=== PATIENT | male | born 1935 | race Caucasian/White ===

== ENCOUNTER 2020-05-05 10:32 | Outpatient (REF) | payer MEDICARE, SELFPAY ==
[2020-05-05 12:54] LABS: Estimated Average Glucose 137 mg/dL; Hemoglobin A1c % 6.4 %
[2020-05-05 12:56] LABS: Basophils Percent Auto 0.5 % (0-2); Eosinophils Absolute Auto 0.2 X10*3/uL (0.0-0.4); MANUAL DIFF FLAG SCAN; Mean Corpuscular Volume 99.4 fL (80-98); Mean Platelet Volume 13.8 fL (9.4-12.4); Red Cell Distribution Width 14.1 % (11.0-16.0); SCAN SMEAR FLAG 1
[2020-05-05 12:59] LABS: Hematocrit 32.1 % (42-52); Hemoglobin 10.6 g/dl (14.0-18.0); Imm Gran Abs Auto 0.01 X10*3/uL (0.00-0.03); Imm Gran Pct Auto 0.2 % (0.0-0.4); Lymphocytes Absolute Auto 1.7 X10*3/uL (1.2-4.9); Lymphocytes Percent Auto 28.1 % (20-40); Mean Corpuscular Hemoglobin 32.8 pg (27.0-33.0); Monocytes Absolute Auto 0.6 X10*3/uL (0.1-1.2); Monocytes Percent Auto 10.3 % (2-11); Neutrophils Absolute Auto 3.4 X10*3/uL (2.0-8.3); Neutrophils Percent Auto 57.9 % (45-73); Red Blood Count 3.23 X10*6/uL (4.60-5.80); White Blood Count 5.9 X10*3/uL (4.8-10.8)
[2020-05-05 13:15] LABS: PLT ABN DIST 1; Platelet Count 84 X10*3/uL (160-400)
[2020-05-05 13:27] LABS: SLIDE REVIEW VERIFIED
[2020-05-05 13:46] LABS: Alanine Aminotransferase 17 U/L (0-40); Albumin Level 3.8 g/dL (3.5-5.0); Alkaline Phosphatase 175 U/L (39-117); Anion Gap 17 (12-20); Aspartate Amino Transferase 28 U/L (5-37); Blood Urea Nitrogen 45 mg/dL (9-16); Calcium 8.6 mg/dL (8.4-10.2); Carbon Dioxide 28 mmol/L (22-29); Chloride 99 mmol/L (96-108); Cholesterol 112 mg/dL; Estimated Glomerular Filt Rate 8; Glucose Random 128 mg/dL (60-115); HDL Cholesterol 39 mg/dL; LDL Cholesterol Calculated 60 mg/dl; Potassium 4.7 mmol/l (3.3-5.1); Sodium 139 mmol/L (135-145); Total Protein 6.6 g/dL (6.5-8.0); Triglycerides 68 mg/dL
== END 2020-05-05 10:33 | disposition home or self-care (01) ==
LOC: HO.LAB 10:32
PROVIDERS: PCP Internal Medicine; Visit Provider Internal Medicine
DX: E11.22 Type 2 diabetes mellitus with diabetic chronic kidney disease (principal); N18.9 Chronic kidney disease, unspecified; I43 Cardiomyopathy in diseases classified elsewhere; I48.91 Unspecified atrial fibrillation; I95.89 Other hypotension; Z00.00 Encounter for general adult medical examination without abnormal findings
CPT/HCPCS: 36415; 80053; 80061; 83036; 85025

== ENCOUNTER → 2020-08-11 13:53 | Outpatient (REF) | payer MEDICARE, SELFPAY ==
--- NOTE | 2020-08-11 14:00 | CA_ITS ---
Transthoracic Echocardiogram Patient (Last, First, Middle): Alexys Candelaria H Gender: Male Date of : 1935 Age: 84 Procedure Date: 08/11/2020 Procedure Type: Transthoracic Echocardiogram Location: OP Height: 170.18 cm Weight: 91.63 kg BSA: 2.03 m2 Heart Rate: bpm BP: 124 / 50 mmHg Band Machine Operator: MARAL Referring MD: Eduardo Green MD Special Loan Officer: Noé Lam MD Symptoms: I48.0 PAF I42.8 OTHER CMP Study Quality: Fair ECG Rhythm: Sinus Conclusions: - 1. Normal LV systolic function with grade 1 diastolic dysfunction 2. Mild aortic regurgitation next 3. Moderate mitral and calcification next 4. Normal RV systolic pressure 5. No pericardial effusion Findings Left Ventricle Normal left ventricular size, thickness, and systolic function. The visually estimated ejection fraction is between 65-70%. Spectral Doppler is indicative of an impaired relaxation filling pattern. E/E prime ratio is <8, consistent with normal filling pressures. Evidence suggests grade I (mild) diastolic dysfunction. Right Ventricle Normal right ventricular cavity size and systolic function. Atria Both atria are normal in size. There is a mobile atrial septum noted. There is no evidence of interatrial shunt. Aortic Valve There is mild calcification of the aortic valve. There is mild thickening of the aortic valve. There is no aortic valve stenosis. There is mild aortic valve regurgitation. Mitral Valve There is mild anterior mitral leaflet thickening. There is moderate mitral annular calcification. There is trace mitral valve regurgitation. There is no mitral valve stenosis. Pulmonic Valve The pulmonic valve was not well visualized. Tricuspid Valve Likely normal tricuspid valve structure and function. There is trace tricuspid valve regurgitation. The right ventricular systolic pressure is normal. The right ventricular systolic pressure is 29 mmHg. Normal right atrial pressure. There is no evidence of pulmonary hypertension. Great Vessels All visible segments of the aorta are normal in size. The pulmonary artery was not well visualized. Venous The inferior vena cava is normal in size and collapses greater than 50% with inspiration. Pericardium/Pleural There is no evidence of pericardial effusion. Prior Study Comparison No significant change compared to prior study dated: 10/22/2019. Measurements M-Mode Liner Measurements Normals - Women/Men AOV Cusps: 1.90 1.5-2.6 cm/m2 2D Linear Measurements IVSd: 1.05 0.6-0.9/0.6-1.0 cm LVIDd: 4.72 3.9-5.3/4.2-5.9 cm LVIDd Index: 2.33 2.4-3.2/2.2-3.1 cm/m2 LVIDs: 2.54 2.0-3.6 cm LVPWd: 1.06 0.7-1.1 cm Ao Root: 3.50 2.1-3.5 cm LA Diam: 3.80 2.7-3.8/3.0-4.0 cm LAIDs Index: 1.87 1.5-2.3 cm/m2 LV Mass: 222.00 67-162/88-224 g LV Mass Index: 109.36 43-95/49-115 g/m2 LVOT Diam: 2.40 3.0+(-)1.3 cm Mitral Valve MV Pk E: 0.50 MV PK A: 0.71 MV Decel Time: 331.00 E/A: 0.70 E'Lateral: 6.64 E'Medial: 5.22 E/E' Med: 9.50 E/E' Lat: 7.50 PHT: 97.00 MVA PHT: 2.27 Decel [place]: 1.49 Aortic Valve AoV Pk Kurtis: 1.54 AoV Pk Grad: 9.00 AI Pk Kurtis: 3.98 AI [place]: 2.55 LVOT LVOT Pk Kurtis: 0.83 LVOT Mn Kurtis: 0.61 LVOT VTI: 0.19 LVOT Pk Grad: 3.00 LVOT Mn Grad: 2.00 LVOT Diam: 2.40 LVOT Area: 4.52 Diastolic Function MV Pk E: 0.50 MV Pk A: 0.71 E/A: 0.70 E'Medial: 5.22 E/E' Med: 9.50 E' Laterial: 6.64 E/E' Lat: 7.50 Tricuspid Valve TR Pk Kurtis: 2.55 TR Pk Grad: 26.00 RA Press: 3.00 RVSP: 29.00 Great Vessels Aorta Ao Root-2D: 3.50 2.0-3.7 cm Ao Asc: 3.00 2.1-3.4 cm Pulmonary Valve PV Pk Kurtis: 0.95 Peak PV Grad: 4.00 Updated in Other Vendor System with Status of Final Noé Lam MD electronically signed on 08/12/2020 12:01:26 PM with status of Final
== END ==
LOC: HO.CARD 13:53
PROVIDERS: PCP Internal Medicine; Visit Provider Internal Medicine
DX: I48.0 Paroxysmal atrial fibrillation (principal); I42.8 Other cardiomyopathies
CPT/HCPCS: 93306

== ENCOUNTER 2020-08-20 10:38 | Outpatient (REF) | payer MEDICARE, SELFPAY ==
[2020-08-20 11:34] LABS: Estimated Average Glucose 160 mg/dL; Hemoglobin A1c % 7.2 %
[2020-08-20 12:23] LABS: Alanine Aminotransferase 20 U/L (0-40); Albumin Level 3.9 g/dL (3.5-5.0); Alkaline Phosphatase 223 U/L (39-117); Anion Gap 17 (12-20); Aspartate Amino Transferase 28 U/L (5-37); Bilirubin Total 1.3 mg/dL (0.0-1.0); Blood Urea Nitrogen 41 mg/dL (9-16); Calcium 9.1 mg/dL (8.4-10.2); Carbon Dioxide 30 mmol/L (22-29); Chloride 99 mmol/L (96-108); Glucose Random 159 mg/dL (60-115); Potassium 4.5 mmol/L (3.3-5.1); Sodium 141 mmol/L (135-145); Total Protein 6.9 g/dL (6.5-8.0)
[2020-08-20 13:31] LABS: Estimated Glomerular Filt Rate 9
== END 2020-08-20 10:39 | disposition home or self-care (01) ==
LOC: HO.LAB 10:38
PROVIDERS: PCP Internal Medicine; Visit Provider Internal Medicine
DX: E11.22 Type 2 diabetes mellitus with diabetic chronic kidney disease (principal); N18.9 Chronic kidney disease, unspecified; E78.2 Mixed hyperlipidemia; I48.91 Unspecified atrial fibrillation; Z99.2 Dependence on renal dialysis
CPT/HCPCS: 36415; 80053; 83036

== ENCOUNTER → 2020-09-01 13:21 | Outpatient (BNVA) | payer MEDICARE, SELFPAY | PROVIDERS: PCP Internal Medicine; Visit Provider Internal Medicine | DX: I48.0 Paroxysmal atrial fibrillation (principal); I42.8 Other cardiomyopathies; I95.0 Idiopathic hypotension; N18.6 End stage renal disease; Z99.2 Dependence on renal dialysis | CPT/HCPCS: 93005; 99212 ==

== ENCOUNTER 2020-12-01 11:42 | Outpatient (REF) | payer MEDICARE, SELFPAY ==
[2020-12-01 13:48] LABS: Estimated Average Glucose 154 mg/dL
[2020-12-01 14:24] LABS: Alanine Aminotransferase 21 U/L (0-40); Albumin Level 3.7 g/dL (3.5-5.0); Alkaline Phosphatase 272 U/L (39-117); Anion Gap 19 (12-20); Aspartate Amino Transferase 29 U/L (5-37); Bilirubin Total 1.2 mg/dL (0.0-1.0); Blood Urea Nitrogen 43 mg/dL (9-16); Calcium 8.9 mg/dL (8.4-10.2); Carbon Dioxide 25 mmol/L (22-29); Chloride 100 mmol/L (96-108); Estimated Glomerular Filt Rate 9; Glucose Random 144 mg/dL (60-115); Potassium 4.2 mmol/L (3.3-5.1); Sodium 140 mmol/L (135-145); Total Protein 6.7 g/dL (6.5-8.0)
== END 2020-12-01 11:43 | disposition home or self-care (01) ==
LOC: HO.LAB 11:42
PROVIDERS: PCP Internal Medicine; Visit Provider Internal Medicine
DX: E11.22 Type 2 diabetes mellitus with diabetic chronic kidney disease (principal); N18.9 Chronic kidney disease, unspecified; E78.2 Mixed hyperlipidemia; I48.91 Unspecified atrial fibrillation; Z99.2 Dependence on renal dialysis
CPT/HCPCS: 36415; 80053; 83036

== ENCOUNTER 2021-03-25 10:27 | Outpatient (REF) | payer MEDICARE, OTHER, SELFPAY ==
[2021-03-25 11:18] LABS: Estimated Average Glucose 166 mg/dL; Hemoglobin A1c % 7.4 %
[2021-03-25 12:15] LABS: Vitamin B12 717 pg/mL (200-900)
[2021-03-25 12:49] LABS: Creatinine Urine 218.11 mg/dL
[2021-03-25 13:19] LABS: Alanine Aminotransferase 29 U/L (0-40); Albumin Level 3.8 g/dL (3.5-5.0); Alkaline Phosphatase 223 U/L (39-117); Anion Gap 16 (12-20); Aspartate Amino Transferase 38 U/L (5-37); Bilirubin Total 1.5 mg/dL (0.0-1.0); Blood Urea Nitrogen 47 mg/dL (9-16); Calcium 9.2 mg/dL (8.4-10.2); Carbon Dioxide 25 mmol/L (22-29); Chloride 102 mmol/L (96-108); Cholesterol 127 mg/dL; Estimated Glomerular Filt Rate 9; Glucose Random 166 mg/dL (60-115); HDL Cholesterol 38 mg/dL; LDL Cholesterol Calculated 69 mg/dl; Potassium 4.2 mmol/L (3.3-5.1); Sodium 139 mmol/L (135-145); Total Protein 6.7 g/dL (6.5-8.0); Triglycerides 103 mg/dL
== END 2021-03-25 10:28 | disposition home or self-care (01) ==
LOC: HO.LAB 10:27
PROVIDERS: PCP Internal Medicine; Visit Provider Internal Medicine
DX: Z00.00 Encounter for general adult medical examination without abnormal findings (principal); E11.40 Type 2 diabetes mellitus with diabetic neuropathy, unspecified; E78.2 Mixed hyperlipidemia; I11.0 Hypertensive heart disease with heart failure; I50.22 Chronic systolic (congestive) heart failure; Z79.01 Long term (current) use of anticoagulants
CPT/HCPCS: 36415; 80053; 80061; 82043; 82607; 83036

== ENCOUNTER → 2021-03-30 12:52 | Outpatient (BNVA) | payer MEDICARE, OTHER, SELFPAY | PROVIDERS: PCP Internal Medicine; Visit Provider Internal Medicine | DX: I48.0 Paroxysmal atrial fibrillation (principal); I42.8 Other cardiomyopathies; I95.0 Idiopathic hypotension; N18.6 End stage renal disease; Z99.2 Dependence on renal dialysis | CPT/HCPCS: 99212 ==

== ENCOUNTER → 2021-09-28 13:26 | Outpatient (BNVA) | payer MEDICARE, OTHER, SELFPAY | PROVIDERS: PCP Internal Medicine; Referring Provider Internal Medicine; Visit Provider Internal Medicine | DX: I48.0 Paroxysmal atrial fibrillation (principal); I42.8 Other cardiomyopathies; I95.0 Idiopathic hypotension; N18.6 End stage renal disease; Z99.2 Dependence on renal dialysis | CPT/HCPCS: 93005; 99212 ==

== ENCOUNTER 2021-10-21 10:27 | Outpatient (REF) | payer MEDICARE, OTHER, SELFPAY ==
[2021-10-21 11:33] LABS: Estimated Average Glucose 157 mg/dL; Hemoglobin A1c % 7.1 %
[2021-10-21 13:09] LABS: Alanine Aminotransferase 30 U/L (0-40); Albumin Level 3.9 g/dL (3.5-5.0); Alkaline Phosphatase 204 U/L (39-117); Anion Gap 20 (12-20); Aspartate Amino Transferase 36 U/L (5-37); Bilirubin Total 1.5 mg/dL (0.0-1.0); Blood Urea Nitrogen 50 mg/dL (9-16); Calcium 9.3 mg/dL (8.4-10.2); Carbon Dioxide 24 mmol/L (22-29); Chloride 100 mmol/L (96-108); Estimated Glomerular Filt Rate 8; Glucose Random 141 mg/dL (60-115); Potassium 4.6 mmol/L (3.3-5.1); Sodium 139 mmol/L (135-145); Total Protein 6.9 g/dL (6.5-8.0)
== END 2021-10-21 10:28 | disposition home or self-care (01) ==
LOC: HO.LAB 10:27
PROVIDERS: PCP Internal Medicine; Visit Provider Internal Medicine
DX: E11.65 Type 2 diabetes mellitus with hyperglycemia (principal); I48.91 Unspecified atrial fibrillation; I10 Essential (primary) hypertension
CPT/HCPCS: 36415; 80053; 83036

== ENCOUNTER 2022-01-20 10:37 | Outpatient (REF) | payer MEDICARE, OTHER, SELFPAY ==
[2022-01-20 12:24] LABS: Estimated Average Glucose 146 mg/dL; Hemoglobin A1c % 6.7 %
[2022-01-20 13:02] LABS: Alanine Aminotransferase 32 U/L (0-40); Albumin Level 3.9 g/dL (3.5-5.0); Alkaline Phosphatase 201 U/L (39-117); Anion Gap 18 (12-20); Aspartate Amino Transferase 42 U/L (5-37); Bilirubin Total 1.3 mg/dL (0.0-1.0); Blood Urea Nitrogen 45 mg/dL (9-16); Calcium 9.4 mg/dL (8.4-10.2); Carbon Dioxide 31 mmol/L (22-29); Chloride 96 mmol/L (96-108); Estimated Glomerular Filt Rate 9; Glucose Random 106 mg/dL (60-115); Potassium 4.6 mmol/L (3.3-5.1); Sodium 140 mmol/L (135-145); Total Protein 6.9 g/dL (6.5-8.0)
== END 2022-01-20 10:38 | disposition home or self-care (01) ==
LOC: HO.LAB 10:37
PROVIDERS: PCP Internal Medicine; Visit Provider Internal Medicine
DX: I12.9 Hypertensive chronic kidney disease with stage 1 through stage 4 chronic kidney disease, or unspecified chronic kidney disease (principal); N18.9 Chronic kidney disease, unspecified; E11.22 Type 2 diabetes mellitus with diabetic chronic kidney disease; Z99.2 Dependence on renal dialysis
CPT/HCPCS: 36415; 80053; 83036

== ENCOUNTER → 2022-03-22 12:59 | Outpatient (BNVA) | payer MEDICARE, OTHER, SELFPAY | PROVIDERS: PCP Internal Medicine; Referring Provider Internal Medicine; Visit Provider Internal Medicine | DX: I42.8 Other cardiomyopathies (principal); I48.0 Paroxysmal atrial fibrillation; I95.0 Idiopathic hypotension; N18.6 End stage renal disease; Z99.2 Dependence on renal dialysis | CPT/HCPCS: 99212 ==

== ENCOUNTER 2022-03-24 10:19 | Outpatient (REF) | payer MEDICARE, OTHER, SELFPAY ==
[2022-03-24 10:36] LABS: MANUAL DIFF FLAG NO
[2022-03-24 11:43] LABS: Basophils Percent Auto 0.5 % (0-2); Eosinophils Absolute Auto 0.4 X10*3/uL (0.0-0.4); Eosinophils Percent Auto 5.2 % (0-4); Hematocrit 31.5 % (42.0-52.0); Hemoglobin 10.4 g/dl (14.0-18.0); Imm Gran Abs Auto 0.04 X10*3/uL (0.00-0.03); Imm Gran Pct Auto 0.5 % (0.0-0.4); Lymphocytes Absolute Auto 1.7 X10*3/uL (1.2-4.9); Mean Corpuscular Hemoglobin 32.1 pg (27.0-33.0); Mean Corpuscular Volume 97.2 fL (80.0-98.0); Mean Platelet Volume 13.6 fL (9.4-12.4); Monocytes Absolute Auto 0.7 X10*3/uL (0.1-1.2); Monocytes Percent Auto 8.5 % (2-11); Neutrophils Absolute Auto 4.9 x10*3/uL (2.0-8.3); Neutrophils Percent Auto 63.3 % (45-73); Red Blood Count 3.24 X10*6/uL (4.60-5.80); Red Cell Distribution Width 15.1 % (11.0-16.0); White Blood Count 7.8 X10*3/uL (4.8-10.8)
[2022-03-24 11:44] LABS: Estimated Average Glucose 143 mg/dL; Hemoglobin A1c % 6.6 %
[2022-03-24 11:45] LABS: Platelet Count 92 X10*3/uL (160-400)
[2022-03-24 12:18] LABS: Thyroid Stimulating Hormone 2.12 uIU/mL (0.32-4.0)
[2022-03-24 12:35] LABS: Vitamin B12 665 pg/mL (200-900)
[2022-03-24 12:44] LABS: Anion Gap 19 (12-20); Carbon Dioxide 28 mmol/L (22-29); Chloride 98 mmol/L (96-108); Glucose Random 98 mg/dL (60-115); Potassium 4.1 mmol/L (3.3-5.1); Sodium 141 mmol/L (135-145)
[2022-03-24 12:45] LABS: Alanine Aminotransferase 24 U/L (0-40); Albumin Level 3.7 g/dL (3.5-5.0); Alkaline Phosphatase 243 U/L (39-117); Aspartate Amino Transferase 39 U/L (5-37); Bilirubin Total 1.2 mg/dL (0.0-1.0); Blood Urea Nitrogen 44 mg/dL (9-16); Calcium 9.2 mg/dL (8.4-10.2); Cholesterol 116 mg/dL; HDL Cholesterol 46 mg/dL; LDL Cholesterol Calculated 58 mg/dl; Total Protein 6.9 g/dL (6.5-8.0); Triglycerides 63 mg/dL
[2022-03-24 13:26] LABS: Estimated Glomerular Filt Rate 9
== END 2022-03-24 10:20 | disposition home or self-care (01) ==
LOC: HO.LAB 10:19
PROVIDERS: PCP Internal Medicine; Visit Provider Internal Medicine
DX: I12.9 Hypertensive chronic kidney disease with stage 1 through stage 4 chronic kidney disease, or unspecified chronic kidney disease (principal); N18.9 Chronic kidney disease, unspecified; E11.22 Type 2 diabetes mellitus with diabetic chronic kidney disease; E78.00 Pure hypercholesterolemia, unspecified; Z99.2 Dependence on renal dialysis
CPT/HCPCS: 36415; 80053; 80061; 82607; 83036; 84443; 85025

== ENCOUNTER 2022-06-28 10:10 | Outpatient (REF) | payer MEDICARE, OTHER, SELFPAY | END 2022-06-28 10:11 | disposition home or self-care (01) | LOC: HO.SH 10:10 | PROVIDERS: Visit Provider Internal Medicine | DX: Z01.118 Encounter for examination of ears and hearing with other abnormal findings (principal); H90.3 Sensorineural hearing loss, bilateral | CPT/HCPCS: 92557; 92567 ==

== ENCOUNTER → 2022-11-10 10:44 | Outpatient (BNVA) | payer MEDICARE, OTHER, SELFPAY | PROVIDERS: PCP Internal Medicine; Referring Provider Internal Medicine; Visit Provider Internal Medicine | DX: I42.8 Other cardiomyopathies (principal); R94.31 Abnormal electrocardiogram [ECG] [EKG]; I48.0 Paroxysmal atrial fibrillation; I95.0 Idiopathic hypotension; K74.60 Unspecified cirrhosis of liver; N18.6 End stage renal disease; Z99.2 Dependence on renal dialysis | CPT/HCPCS: 93005; 99212 ==

== ENCOUNTER 2022-11-21 20:28 | Emergency (ER) | payer OTHER, MEDICARE, SELFPAY ==
--- NOTE | ~2022-11-21 | XR_ITS ---
EXAMINATION: XR CHEST CLINICAL INFORMATION: AMS COMPARISON: None available. TECHNIQUE: Frontal view of the chest was obtained. FINDINGS: The lungs are hypoexpanded but clear. The heart size and pulmonary vascularity is normal. No gross bony abnormality seen. There is a left subclavian stent noted. XR/XR chest 1V IMPRESSION: Unremarkable chest examination.
--- NOTE | ~2022-11-21 | CT_ITS ---
EXAMINATION: CT ABDOMEN AND PELVIS WITHOUT CONTRAST CLINICAL INFORMATION: New onset ascites COMPARISON: None available. TECHNIQUE: Multidetector volumetric imaging was performed from the superior aspect of the liver through the pubic symphysis. Sagittal and coronal reformatted images were obtained on the technologist's workstation. This CT examination was performed using dose optimization techniques as appropriate, variously including the following: *Automated exposure control *Adjustment of mA and/or kV according to patient size (this includes techniques or standardized protocols for targeted exams where dose is matched to indication/reason for exam; i.e. extremities or head) *Use of iterative reconstruction technique DLP: 861 mGy-cm FINDINGS: LUNG BASES: Bibasilar subsegmental atelectasis. Cardiomegaly. Triple vessel coronary calcifications. LIVER, GALLBLADDER, AND BILIARY TREE: Morphologically cirrhotic liver. No focal liver lesions. No biliary dilatation. Cholelithiasis. PANCREAS: Unremarkable. SPLEEN: Unremarkable. ADRENAL GLANDS: Unremarkable. KIDNEYS AND URETERS: Both kidneys are atrophic. There is a 1.3 cm structure emanating from the posterior right upper renal pole measuring 25 HU, indeterminate on the basis of unenhanced CT. No hydronephrosis, hydroureter, or calculi seen. No perinephric stranding. BLADDER: Unremarkable. GASTROINTESTINAL TRACT: Pancolonic diverticulosis, most concentrated in the left colon. No evidence of diverticulitis. Stomach and small bowel unremarkable. PERITONEUM: Large volume ascites. No peritoneal implants. ABDOMINAL WALL: Right lower quadrant hernia containing omental fat. LYMPH NODES: Normal. VASCULAR: Aorta is atherosclerotic but normal caliber. Recanalized periumbilical vein. PELVIC VISCERA: Unremarkable. 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 CT/CT abdomen pelvis wo IV con IMPRESSION: * Morphologically cirrhotic liver with large volume ascites. * Cholelithiasis. * Pancolonic diverticulosis without evidence of diverticulitis. * Indeterminate 1.3 cm structure emanating from the posterior right upper renal pole. Recommend renal ultrasound for further evaluation.
[2022-11-21 20:34] VITALS: BP 110/58; BP 132/51; PULSE 88; PULSE 89; RESP 22; TEMP 36.7; O2SAT 90; O2SAT 92; BMI 31.4
--- NOTE | 2022-11-21 21:00 | PC.NURSE ---
Pt A&Ox3, reports feeling weak and tired during dialysis tx, denies any pain. BP 132/51. Pt able to move all extremities equally, lung sounds clear, crackles to right base. + trill and bruit to left upper arm fistula.
--- NOTE | 2022-11-21 21:23 | ED.GENADULT ---
HPI - General Adult General Chief complaint: General Medical Stated complaint: hypotensive Time Seen by Provider: 11/21/22 21:21 Source: patient and family Mode of arrival: EMS Limitations: no limitations History of Present Illness HPI narrative: Patient 87 years old with history of hepatic cirrhosis and end-stage renal disease on dialysis for last 4 years for last 1 month also noticed increased ascites diagnosed with hepatic cirrhosis been feeling weak and tired today while in dialysis within 2 hours of dialysis blood pressure dropped to 46/29 patient received 600 mL of normal saline and blood pressure improved on arrival patient's blood pressure was 132/51 pulse rate 89 saturating 92% on room air no fever no chills no sore throat cough or shortness of breath no chest pain or palpitation Related Data Home Medications Medication Instructions Recorded Confirmed albuterol sulfate 90 mcg/actuation 2 puff inhalation Q4-6H PRN 09/01/20 11/10/22 aerosol inhaler (ProAir HFA) allopurinol 100 mg tablet 100 mg PO DAILY 09/01/20 11/10/22 furosemide 40 mg tablet 40 mg PO DAILY 09/01/20 11/10/22 ketorolac 0.5 % eye drops 1 drp ophthalmic (eye) BID 09/01/20 11/10/22 melatonin 5 mg capsule mg PO 09/01/20 11/10/22 metoprolol succinate 25 mg 25 mg PO DAILY 09/01/20 11/10/22 tablet,extended release 24 hr pravastatin 80 mg tablet 80 mg PO BEDTIME 09/01/20 11/10/22 prednisone 20 mg tablet 0 mg PO 09/01/20 11/10/22 repaglinide 0.5 mg tablet 0.5 mg PO TID 09/01/20 11/10/22 calcium carbonate 500 mg calcium 500 mg PO TID 03/30/21 11/10/22 (1,250 mg) chewable tablet midodrine 5 mg tablet 5 mg PO TID 09/28/21 11/10/22 Previous Rx's Medication Instructions Recorded apixaban 2.5 mg tablet 2.5 mg PO BID 90 days #180 tabs 02/03/22 lactulose 20 gram oral packet 20 g PO BID #30 ea 11/22/22 Allergies Allergy/AdvReac Type Severity Reaction Status Date / Time No Known Allergies Allergy Verified 11/10/22 10:58 [No Known Allergies*] Review of Systems Review of Systems: Yes all other systems are reviewed and are negative FOR[facility]LY [facility] Past Medical History Medical History Cirrhosis ESRD (end stage renal disease) on dialysis Idiopathic hypotension NICM (nonischemic cardiomyopathy) PAF (paroxysmal atrial fibrillation) Surgical History H/O colonoscopy History of appendectomy Family History Family History Father No problems noted. Mother No problems noted. Social History Social History Alcohol intake: never Patient Tobacco Use Status: Never used Tobacco Smoked in Last 30 Days: No Use of substances other than those prescribed or required for medical reasons: No Advance Directives: No Advance Directives Information Provided: No Physical Exam ED Vital Signs: Vital Signs - 24 hr 11/21/22 20:34 11/22/22 00:27 11/22/22 02:13 Temperature 98.0 F 98.0 F Pulse Rate 89 83 87 Respiratory Rate 22 H 17 20 Blood Pressure 132/51 L 97/48 L 91/49 L Pulse Oximetry 92 97 90 L Oxygen Delivery Method Room Air Room Air Room Air 11/22/22 03:02 Temperature Pulse Rate 89 Respiratory Rate 14 Blood Pressure 106/53 L Pulse Oximetry 92 Oxygen Delivery Method Room Air BMI result Body Mass Index 31.4 Appearance: Alert. Oriented X3. No acute distress. Eyes: PERRLA, pallor+ ENT: Pharynx normal. Oral Mucosa moist Neck: Normal inspection. Neck supple. CVS: Normal heart rate and rhythm. Pulses normal. Respiratory: No respiratory distress. Equal air entry bilateral, no wheezing/rales/rhonchi Abdomen: Distended abdomen with free fluid++ nontender. Bowel sounds are present, no mass palpable, no CVA tenderness Skin: Skin warm and dry. Normal skin color. Normal skin turgor. Extremities: No lower extremity edema. No calf tenderness Neuro: Oriented X 3. No motor deficit. No sensory deficit.No cerebellar signs , cranial nerves II-XII intact Medications Administered Discontinued Medications Generic Name Dose Route Start Last Admin Trade Name Freq PRN Reason Stop Dose Admin Albumin Human 100 mls @ 100 mls/hr 11/22/22 01:45 11/22/22 04:15 Kedbumin 25 % IV 11/22/22 03:44 Infused Q1H GEMMA Infusion Lactulose 20 gm 11/22/22 01:36 11/22/22 01:53 Lactulose 20 Gm/30 Ml Solution PO 11/22/22 01:37 20 gm ONCE ONE Administration Medical Decision Making Medical Decision Making [facility] Narrative: Patient with hepatic cirrhosis with ascites with transient hypotension workup showed hypoalbuminemia likely the cause for hypotension blood pressure improved after 600 cc of IV bolus. Patient had elevated lactic acid level secondary to renal and hepatic failure not from bacteremia/sepsis. Patient will be discharging home advised to be more cautious for dialysis because of hypoalbuminemia Lab Data [facility] Lab Attestation statement: I reviewed the patient's lab results. 11/21/22 22:54 11/22/22 00:38 Labs: Lab Results 11/21/22 11/21/22 11/21/22 Range/Units 22:54 22:54 22:54 WBC 9.9 (4.8-10.8) X10*3/uL RBC 3.96 L D (4.60-5.80) X10*6/uL Hgb 12.6 L D (14.0-18.0) g/dl Hct 37.4 L (42.0-52.0) % MCV 94.4 (80.0-98.0) fL MCH 31.8 (27.0-33.0) pg MCHC 33.7 (31.0-36.0) g/dl RDW 15.5 (11.0-16.0) % Plt Count 206 D (160-400) X10*3/uL MPV 12.1 (9.4-12.4) fL Immature Gran % (Auto) 0.6 H (0.0-0.4) % Neut % (Auto) 79.1 H (45-73) % Lymph % (Auto) 6.9 L (20-40) % Chaves % (Auto) 12.2 H (2-11) % Eos % (Auto) 0.9 (0-4) % Baso % (Auto) 0.3 (0-2) % Lymph # (Auto) 0.7 L (1.2-4.9) X10*3/uL Chaves # (Auto) 1.2 (0.1-1.2) X10*3/uL Eos # (Auto) 0.1 (0.0-0.4) X10*3/uL Baso # (Auto) 0.0 (0.0-0.2) X10*3/uL Abs Immat Gran (auto) 0.06 H (0.00-0.03) X10*3/uL Absolute Neuts (auto) 7.9 (2.0-8.3) x10*3/uL Absolute Nucleated RBC 0.000 (0.0-0.012) X10*3/uL Nucleated RBC % (auto) 0.0 (0.0-0.2) /100WBC PT (10.0-13.1) SEC INR (0.9-1.1) Sodium (135-145) mmol/L Potassium (3.3-5.1) mmol/L Chloride (96-108) mmol/L Carbon Dioxide (22-29) mmol/L Anion Gap (12-20) BUN (9-16) mg/dL Creatinine (0.5-1.4) mg/dL Estim Creat Clear Calc Estimated GFR Random Glucose (60-115) mg/dL Lactic Acid 3.0 H* (0.5-2.0) mmol/L Lactic Acid F/U @ 2Hr (0.5-2.0) mmol/L Calcium (8.4-10.2) mg/dL Total Bilirubin (0.0-1.0) mg/dL AST (5-37) U/L ALT (0-40) U/L Alkaline Phosphatase (39-117) U/L Ammonia (13-55) umol/L Troponin I High Sens 37.5 H (<3.5-35.0) ng/L Total Protein (6.5-8.0) g/dL Albumin (3.5-5.0) g/dL 11/21/22 11/21/22 11/22/22 Range/Units 22:54 22:54 00:38 WBC (4.8-10.8) X10*3/uL RBC (4.60-5.80) X10*6/uL Hgb (14.0-18.0) g/dl Hct (42.0-52.0) % MCV (80.0-98.0) fL MCH (27.0-33.0) pg MCHC (31.0-36.0) g/dl RDW (11.0-16.0) % Plt Count (160-400) X10*3/uL MPV (9.4-12.4) fL Immature Gran % (Auto) (0.0-0.4) % Neut % (Auto) (45-73) % Lymph % (Auto) (20-40) % Chaves % (Auto) (2-11) % Eos % (Auto) (0-4) % Baso % (Auto) (0-2) % Lymph # (Auto) (1.2-4.9) X10*3/uL Chaves # (Auto) (0.1-1.2) X10*3/uL Eos # (Auto) (0.0-0.4) X10*3/uL Baso # (Auto) (0.0-0.2) X10*3/uL Abs Immat Gran (auto) (0.00-0.03) X10*3/uL Absolute Neuts (auto) (2.0-8.3) x10*3/uL Absolute Nucleated RBC (0.0-0.012) X10*3/uL Nucleated RBC % (auto) (0.0-0.2) /100WBC PT 15.4 H (10.0-13.1) SEC INR 1.3 H (0.9-1.1) Sodium 137 (135-145) mmol/L Potassium 4.2 (3.3-5.1) mmol/L Chloride 95 L (96-108) mmol/L Carbon Dioxide 28 (22-29) mmol/L Anion Gap 18 (12-20) BUN 48 H (9-16) mg/dL Creatinine 6.52 H* (0.5-1.4) mg/dL Estim Creat Clear Calc 8.9 Estimated GFR 8 Random Glucose 190 H (60-115) mg/dL Lactic Acid (0.5-2.0) mmol/L Lactic Acid F/U @ 2Hr (0.5-2.0) mmol/L Calcium 8.5 D (8.4-10.2) mg/dL Total Bilirubin 2.2 H (0.0-1.0) mg/dL AST 45 H (5-37) U/L ALT 27 (0-40) U/L Alkaline Phosphatase 340 H (39-117) U/L Ammonia 61 H (13-55) umol/L Troponin I High Sens (<3.5-35.0) ng/L Total Protein 6.0 L (6.5-8.0) g/dL Albumin 2.4 L (3.5-5.0) g/dL 11/22/22 Range/Units 02:32 WBC (4.8-10.8) X10*3/uL RBC (4.60-5.80) X10*6/uL Hgb (14.0-18.0) g/dl Hct (42.0-52.0) % MCV (80.0-98.0) fL MCH (27.0-33.0) pg MCHC (31.0-36.0) g/dl RDW (11.0-16.0) % Plt Count (160-400) X10*3/uL MPV (9.4-12.4) fL Immature Gran % (Auto) (0.0-0.4) % Neut % (Auto) (45-73) % Lymph % (Auto) (20-40) % Chaves % (Auto) (2-11) % Eos % (Auto) (0-4) % Baso % (Auto) (0-2) % Lymph # (Auto) (1.2-4.9) X10*3/uL Chaves # (Auto) (0.1-1.2) X10*3/uL Eos # (Auto) (0.0-0.4) X10*3/uL Baso # (Auto) (0.0-0.2) X10*3/uL Abs Immat Gran (auto) (0.00-0.03) X10*3/uL Absolute Neuts (auto) (2.0-8.3) x10*3/uL Absolute Nucleated RBC (0.0-0.012) X10*3/uL Nucleated RBC % (auto) (0.0-0.2) /100WBC PT (10.0-13.1) SEC INR (0.9-1.1) Sodium (135-145) mmol/L Potassium (3.3-5.1) mmol/L Chloride (96-108) mmol/L Carbon Dioxide (22-29) mmol/L Anion Gap (12-20) BUN (9-16) mg/dL Creatinine (0.5-1.4) mg/dL Estim Creat Clear Calc Estimated GFR Random Glucose (60-115) mg/dL Lactic Acid (0.5-2.0) mmol/L Lactic Acid F/U @ 2Hr 0.9 (0.5-2.0) mmol/L Calcium (8.4-10.2) mg/dL Total Bilirubin (0.0-1.0) mg/dL AST (5-37) U/L ALT (0-40) U/L Alkaline Phosphatase (39-117) U/L Ammonia (13-55) umol/L Troponin I High Sens (<3.5-35.0) ng/L Total Protein (6.5-8.0) g/dL Albumin (3.5-5.0) g/dL Radiology Impression Discussion of test interpretation with radiology: I have reviewed the radiologist's reading. Radiologist Impression: [place] [id number] CT Scan Report Signed Patient: Alexys Candelaria MR#: [id number] : 1935 Acct:[id number] Age/Sex: 87 / M ADM Date: 11/21/22 Loc: .ED Attending Dr: Ordering Physician: Polo Pradhan MD Date of Service: 11/22/22 Procedure(s): CT abdomen pelvis wo IV con Accession Number(s): [id number] cc: Polo Pradhna MD~ EXAMINATION: CT ABDOMEN AND PELVIS WITHOUT CONTRAST? CLINICAL INFORMATION: New onset ascites? COMPARISON: None available. TECHNIQUE: Multidetector volumetric imaging was performed from the superior aspect of the liver through the pubic symphysis. Sagittal and coronal reformatted images were obtained on the technologist's workstation.? This CT examination was performed using dose optimization techniques as appropriate, variously including the following: *Automated exposure control *Adjustment of mA and/or kV according to patient size (this includes techniques or standardized protocols for targeted exams where dose is matched to indication/reason for exam; i.e. extremities or head) *Use of iterative reconstruction technique DLP: 861 mGy-cm FINDINGS: LUNG BASES: Bibasilar subsegmental atelectasis. Cardiomegaly. Triple vessel coronary calcifications.? LIVER, GALLBLADDER, AND BILIARY TREE: Morphologically cirrhotic liver. No focal liver lesions. No biliary dilatation. Cholelithiasis.? PANCREAS: Unremarkable.? SPLEEN: Unremarkable.? ADRENAL GLANDS: Unremarkable.? KIDNEYS AND URETERS: Both kidneys are atrophic. There is a 1.3 cm structure emanating from the posterior right upper renal pole measuring 25 HU, indeterminate on the basis of unenhanced CT. No hydronephrosis, hydroureter, or calculi seen. No perinephric stranding. ? BLADDER: Unremarkable.? GASTROINTESTINAL TRACT: Pancolonic diverticulosis, most concentrated in the left colon. No evidence of diverticulitis. Stomach and small bowel unremarkable. PERITONEUM: Large volume ascites. No peritoneal implants. ABDOMINAL WALL: Right lower quadrant hernia containing omental fat. LYMPH NODES: Normal. VASCULAR: Aorta is atherosclerotic but normal caliber. Recanalized periumbilical vein. PELVIC VISCERA: Unremarkable.? 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 CT/CT abdomen pelvis wo IV con IMPRESSION: *? Morphologically cirrhotic liver with large volume ascites. *? Cholelithiasis. *? Pancolonic diverticulosis without evidence of diverticulitis. *? Indeterminate 1.3 cm structure emanating from the posterior right upper renal pole. Recommend renal ultrasound for further evaluation. Discharge Plan Discharge Clinical Impression: ESRD (end stage renal disease) on dialysis, Hepatic cirrhosis Patient Disposition: Home, Self-Care Instructions: Cirrhosis (ED), End Stage Kidney Disease (ED) Additional Instructions: Follow-up with salesperson furniture and Nephrology Take lactulose twice daily as advised Prescriptions: New lactulose 20 gram packet 20 g PO BID Qty: 30 0RF No Action apixaban 2.5 mg tablet 2.5 mg PO BID 90 Days Qty: 180 3RF furosemide 40 mg tablet 40 mg PO DAILY ketorolac 0.5 % drops 1 drp ophthalmic (eye) BID allopurinol 100 mg tablet 100 mg PO DAILY metoprolol succinate 25 mg tablet extended release 24 hr 25 mg PO DAILY repaglinide 0.5 mg tablet 0.5 mg PO TID pravastatin 80 mg tablet 80 mg PO BEDTIME prednisone 20 mg tablet 0 mg PO albuterol sulfate [ProAir HFA] 90 mcg/actuation HFA aerosol inhaler 2 puff inhalation Q4-6H PRN melatonin 5 mg capsule PO calcium carbonate 500 mg calcium (1,250 mg) tablet,chewable 500 mg PO TID midodrine 5 mg tablet 5 mg PO TID Interventions: ED Discharge Assessment Last Done: 11/22/22 04:52 Discharge Date/Time: 11/22/22 04:52
--- NOTE | 2022-11-21 21:26 | ECG_ITS ---
Test Reason : hypotension Blood Pressure : / mmHG Vent. Rate : 087 BPM Atrial Rate : 087 BPM P-R Int : 162 ms QRS Dur : 078 ms QT Int : 426 ms P-R-T Axes : 025 042 055 degrees QTc Int : 512 ms Sinus rhythm with Premature atrial complexes Low voltage QRS Cannot rule out Anterior infarct , age undetermined Prolonged QT Abnormal ECG When compared with ECG of 17-JUN-2019 11:59, Significant changes have occurred Referred By: Polo Pradhan Electronically Signed By:Abdi Hopkins
[2022-11-21 23:02] LABS: MANUAL DIFF FLAG NO
[2022-11-21 23:03] LABS: Basophils Percent Auto 0.3 % (0-2); Eosinophils Absolute Auto 0.1 X10*3/uL (0.0-0.4); Eosinophils Percent Auto 0.9 % (0-4); Hematocrit 37.4 % (42.0-52.0); Hemoglobin 12.6 g/dl (14.0-18.0); Imm Gran Abs Auto 0.06 X10*3/uL (0.00-0.03); Imm Gran Pct Auto 0.6 % (0.0-0.4); Lymphocytes Absolute Auto 0.7 X10*3/uL (1.2-4.9); Lymphocytes Percent Auto 6.9 % (20-40); Mean Corpuscular HGB Conc 33.7 g/dl (31.0-36.0); Mean Corpuscular Hemoglobin 31.8 pg (27.0-33.0); Mean Corpuscular Volume 94.4 fL (80.0-98.0); Mean Platelet Volume 12.1 fL (9.4-12.4); Monocytes Absolute Auto 1.2 X10*3/uL (0.1-1.2); Monocytes Percent Auto 12.2 % (2-11); Neutrophils Absolute Auto 7.9 x10*3/uL (2.0-8.3); Neutrophils Percent Auto 79.1 % (45-73); Platelet Count 206 X10*3/uL (160-400); Red Blood Count 3.96 X10*6/uL (4.60-5.80); Red Cell Distribution Width 15.5 % (11.0-16.0); White Blood Count 9.9 X10*3/uL (4.8-10.8)
[2022-11-21 23:09] LABS: INTERNATIONAL NORM RATIO 1.3 (0.9-1.1); Prothrombin Time 15.4 SEC (10.0-13.1)
[2022-11-21 23:16] LABS: Ammonia 61 umol/L (13-55)
[2022-11-21 23:29] LABS: Troponin-I High Sensitivity 37.5 ng/L (<3.5-35.0)
[2022-11-22 00:27] VITALS: BP 97/48; PULSE 83; RESP 17; TEMP 36.7; O2SAT 97
[2022-11-22 00:58] LABS: Reflex Lactate? Lactic Acid Added
[2022-11-22 01:27] LABS: Alanine Aminotransferase 27 U/L (0-40); Albumin Level 2.4 g/dL (3.5-5.0); Alkaline Phosphatase 340 U/L (39-117); Anion Gap 18 (12-20); Aspartate Amino Transferase 45 U/L (5-37); Bilirubin Total 2.2 mg/dL (0.0-1.0); Blood Urea Nitrogen 48 mg/dL (9-16); Calcium 8.5 mg/dL (8.4-10.2); Carbon Dioxide 28 mmol/L (22-29); Chloride 95 mmol/L (96-108); Creatinine Clr Calc Pharmacy 8.9; Estimated Glomerular Filt Rate 8; Glucose Random 190 mg/dL (60-115); Potassium 4.2 mmol/L (3.3-5.1); Sodium 137 mmol/L (135-145)
--- NOTE | 2022-11-22 01:48 | PC.NURSE ---
pt reposition for comfort.
[2022-11-22] MEDS: Lactulose 20 GM/30 ML SOLUTION PO (01:53)
[2022-11-22] MEDS: Albumin Human 25 % 100 ML IV ×2 (02:06→03:01)
[2022-11-22 02:13] VITALS: BP 91/49; PULSE 87; RESP 20; O2SAT 90
[2022-11-22 02:51] LABS: ~Lactic Acid-LAB USE ONLY 0.9 mmol/L (0.5-2.0)
[2022-11-22 03:02] VITALS: BP 106/53; PULSE 89; RESP 14; O2SAT 92
== END 2022-11-22 04:52 | disposition home or self-care (01) ==
PROVIDERS: Emergency Provider Internal Medicine
DX: K74.60 Unspecified cirrhosis of liver (principal); N18.6 End stage renal disease; R94.31 Abnormal electrocardiogram [ECG] [EKG]; R53.1 Weakness; Z99.2 Dependence on renal dialysis; Z79.899 Other long term (current) drug therapy
CPT/HCPCS: 36415; 71045; 74176; 80053; 82140; 83605; 84484; 85025; 85610; 87040; 93005; 96365; 96366; 99285; P9047

== ENCOUNTER 2022-12-16 18:57 | Inpatient (IN) | payer OTHER, MEDICARE, SELFPAY ==
[2022-12-16] VITALS (8 sets, daily range): BP systolic 62–124; BP diastolic 27–59; PULSE 92–145; RESP 12–29; TEMP 36.6; O2SAT 91–98; BMI 33.7
--- NOTE | 2022-12-16 | ECG_ITS ---
Test Reason : repeat Blood Pressure : / mmHG Vent. Rate : 093 BPM Atrial Rate : 093 BPM P-R Int : 156 ms QRS Dur : 078 ms QT Int : 400 ms P-R-T Axes : 013 011 059 degrees QTc Int : 497 ms Normal sinus rhythm Low voltage QRS Prolonged QT Abnormal ECG When compared with ECG of 16-DEC-2022 18:59, Sinus rhythm has replaced Atrial fibrillation Referred By: Generic ED Physician Electronically Signed By:Abdi Hopkins
--- NOTE | ~2022-12-16 | XR_ITS ---
EXAMINATION: XR CHEST CLINICAL INFORMATION: Short of breath COMPARISON: 11/21/2022 TECHNIQUE: Frontal view of the chest was obtained. FINDINGS: Cardiac leads overlie the chest. Lung volumes are low. Increased retrocardiac opacity. Small left pleural effusion. No pneumothorax. The cardiomediastinal silhouette is unchanged, with a calcified aorta. XR/XR chest 1V IMPRESSION: Small left pleural effusion. Increased retrocardiac opacity which could represent atelectasis or pneumonia.
--- NOTE | ~2022-12-16 | US_ITS ---
EXAMINATION: Ultrasound-guided paracentesis CLINICAL INFORMATION: Ascites COMPARISON: Previous CT of the abdomen and pelvis November 2022 TECHNIQUE: Procedure and risks and benefits including bleeding, infection and low blood pressure were discussed with the patient and informed consent was obtained. The left lower quadrant was prepped and draped in the usual sterile fashion. The skin and soft tissues were anesthetized with 1% lidocaine plain. Using ultrasound guidance and a 5 [place] one-step system, access to the ascitic fluid was obtained. 5.6 L of clear yellow fluid was removed. Diagnostic specimen was sent. FINDINGS: There is a large amount of ascites. This appears slightly complex with septations. US/US paracentesis abd w/image IMPRESSION: Ultrasound-guided paracentesis.
--- NOTE | ~2022-12-16 | XR_ITS ---
EXAMINATION: XR CHEST CLINICAL INFORMATION: Pneumonia COMPARISON: Previous chest x-ray most recent from 12/16/2022 TECHNIQUE: Frontal view of the chest was obtained. FINDINGS: The lung volumes are low. The cardiac and mediastinal contours are stable. There is a small left pleural effusion. There is atelectasis or small infiltrate at the left lung base probably in the left lower lobe. The right lung is clear. No pneumothorax. No acute bone abnormality. XR/XR chest 1V IMPRESSION: Small left pleural effusion and atelectasis or infiltrate in the left lower lobe.
--- NOTE | 2022-12-16 19:22 | ED.GENADULT ---
HPI - General Adult General Chief complaint: General Medical Stated complaint: HYPOTENSIVE LETHARGIC Time Seen by Provider: 12/16/22 19:13 Source: patient and family (Daughter and ) Mode of arrival: EMS History of Present Illness HPI narrative: 87-year-old male with multiple medical comorbidities to include liver cirrhosis and ESR D on dialysis is brought in by EMS after developing significant low blood pressure and becoming hypotensive 30 minutes into his dialysis procedure. His dialysis is Monday. Patient was alert and oriented on arrival to this emergency room. Patient does have a history of paroxysmal atrial fibrillation and is currently on Eliquis. Related Data Home Medications Medication Instructions Recorded Confirmed albuterol sulfate 90 mcg/actuation 2 puff inhalation Q4-6H PRN 09/01/20 11/10/22 aerosol inhaler (ProAir HFA) allopurinol 100 mg tablet 100 mg PO DAILY 09/01/20 11/10/22 furosemide 40 mg tablet 40 mg PO DAILY 09/01/20 11/10/22 ketorolac 0.5 % eye drops 1 drp ophthalmic (eye) BID 09/01/20 11/10/22 melatonin 5 mg capsule mg PO 09/01/20 11/10/22 metoprolol succinate 25 mg 25 mg PO DAILY 09/01/20 11/10/22 tablet,extended release 24 hr pravastatin 80 mg tablet 80 mg PO BEDTIME 09/01/20 11/10/22 prednisone 20 mg tablet 0 mg PO 09/01/20 11/10/22 repaglinide 0.5 mg tablet 0.5 mg PO TID 09/01/20 11/10/22 calcium carbonate 500 mg calcium 500 mg PO TID 03/30/21 11/10/22 (1,250 mg) chewable tablet Previous Rx's Medication Instructions Recorded apixaban 2.5 mg tablet 2.5 mg PO BID 90 days #180 tabs 02/03/22 lactulose 20 gram oral packet 20 g PO BID #30 ea 11/22/22 midodrine 10 mg tablet 10 mg PO TID #90 tabs 11/22/22 Allergies Allergy/AdvReac Type Severity Reaction Status Date / Time No Known Allergies Allergy Verified 11/10/22 10:58 [No Known Allergies*] Review of Systems Review of Systems: Pertinent positives and negatives as stated in HPI [facility] Past Medical History Source: nursing notes reviewed Medical History Cirrhosis ESRD (end stage renal disease) on dialysis Idiopathic hypotension NICM (nonischemic cardiomyopathy) PAF (paroxysmal atrial fibrillation) Surgical History H/O colonoscopy History of appendectomy Family History Family History Father No problems noted. Mother No problems noted. Social History Social History Alcohol intake: never Patient Tobacco Use Status: Never used Tobacco Smoked in Last 30 Days: No Use of substances other than those prescribed or required for medical reasons: No Advance Directives: No Advance Directives Information Provided: No Physical Exam ED Vital Signs: Vital Signs - 24 hr 12/16/22 18:59 12/16/22 19:10 12/16/22 19:18 Temperature 97.8 F Pulse Rate 145 H 125 H 130 H Respiratory Rate 12 22 H 22 H Blood Pressure 68/27 L 73/40 L 93/45 L Pulse Oximetry Oxygen Delivery Method Non-Rebreather Mask 12/16/22 19:42 12/16/22 20:15 Temperature Pulse Rate 95 99 Respiratory Rate 23 H 29 H Blood Pressure 83/44 L 100/58 L Pulse Oximetry 98 93 Oxygen Delivery Method Room Air Room Air BMI result Body Mass Index 33.7 VITAL SIGNS: Reviewed. GENERAL: Chronically ill, in no acute distress. HEAD: Normocephalic/atraumatic EYES: PERRLA, EOMI EARS: Ext canals without abnormality, TMs non-bulging and non-erythematous NOSE: Nares patent bilateral OROPHARYNX: no oral lesions noted, posterior pharynx clear and non-erythematous without noted tonsillar enlargement/erythema/exudates NECK: Supple, no adenopathy LUNGS: Decreased breath sounds in lower base. SpO2<93> CARDIOVASCULAR: Regular rate and rhythm without noted murmurs, no JVD or lower extremity edema. ABDOMEN: Soft, non-tender, distended with bowel sounds. MUSCULOSKELETAL: No tenderness, deformities, or effusions noted on gross inspection. EXTREMITIES: No cyanosis, clubbing or edema. SKIN: Inspection of the skin reveals no rashes, +jaundice NEUROLOGIC: Alert and oriented x 3. Strength and sensation to light touch were grossly intact x 4. Medications Administered Discontinued Medications Generic Name Dose Route Start Last Admin Trade Name Esperanza PRN Reason Stop Dose Admin Metoprolol Tartrate 2.5 mg 12/16/22 19:18 12/16/22 19:25 Metoprolol Tartrate 5 Mg/5 Ml Vial IVPUSH 12/16/22 19:19 2.5 mg ONCE ONE Administration Medical Decision Making Medical Decision Making [facility] Narrative: 87-year-old male who arrives hypotensive and clearly in atrial fibrillation with RVR but alert and oriented, completed the remaining IV fluids (500 cc), placed pads on the patient as he did qualify for cardioversion, but daughter declines cardioversion at this time stating that patient did not need cardioversion before and has received albumin as well as amiodarone and is a very conflicting story. After receiving the 500 cc of fluids on a pressure bag, his pressure has gradually improved, he is noted to be on medication to increase his blood pressure at baseline and suspect that this is due to his underlying liver cirrhosis. Once patient's blood pressure was in the mid 90 systolic he receives 2.5 mg of Lopressor with resolution of RVR and resumption of normal sinus rhythm. On re-evaluation patient states that he feels better. I a.m. aware that patient's lactic acid is significantly elevated, he also has a leukocytosis as well as liver and renal derangements (these derangements are at baseline secondary to his underlying ESR D as well as liver failure). The lactic acid is strongly felt to be associated with patient's significant hypotension secondary to the atrial fibrillation with RVR, but on chest x-ray there was a noted opacity and so after medications are given for the hyper kalemia likely secondary to incomplete dialysis I will administer 2 g of Rocephin. Patient has no abdominal pain to indicate SBP. The low blood pressure is felt to be secondary low pre load from the atrial fibrillation with RVR. 2031: I discussed this case with inpatient hospitalist who accepts admission and understands that we are completing treatment for the hyperkalemia and giving patient antibiotics. I will not be giving any further bolus of fluids due to patient's propensity for fluid overload, noted left pleural effusion on chest x-ray and incomplete dialysis. Differential Diagnosis Please see the discussion above Consult Healthcare Provider Management of the patient was discussed with: Hospitalist Please see the discussion above Lab Data Please see the discussion above 12/16/22 19:23 12/16/22 19:23 Labs: Lab Results 12/16/22 12/16/22 12/16/22 Range/Units 19:23 19:23 19:23 WBC 16.2 H (4.8-10.8) X10*3/uL RBC 3.37 L (4.60-5.80) X10*6/uL Hgb 10.9 L (14.0-18.0) g/dl Hct 31.5 L (42.0-52.0) % MCV 93.5 (80.0-98.0) fL MCH 32.3 (27.0-33.0) pg MCHC 34.6 (31.0-36.0) g/dl RDW 17.6 H (11.0-16.0) % Plt Count 66 L D (160-400) X10*3/uL MPV TNP Immature Gran % (Auto) 1.2 H (0.0-0.4) % Neut % (Auto) 89.6 H (45-73) % Lymph % (Auto) 2.2 L (20-40) % [place] % (Auto) 6.8 (2-11) % Eos % (Auto) 0.1 (0-4) % Baso % (Auto) 0.1 (0-2) % Lymph # (Auto) 0.4 L (1.2-4.9) X10*3/uL [place] # (Auto) 1.1 (0.1-1.2) X10*3/uL Eos # (Auto) 0.0 (0.0-0.4) X10*3/uL Baso # (Auto) 0.0 (0.0-0.2) X10*3/uL Abs Immat Gran (auto) 0.20 H (0.00-0.03) X10*3/uL Absolute Neuts (auto) 14.5 H (2.0-8.3) x10*3/uL Absolute Nucleated RBC 0.000 (0.0-0.012) X10*3/uL Nucleated RBC % (auto) 0.0 (0.0-0.2) /100WBC Smear Tech's Comments VERIFIED PT (10.0-13.1) SEC INR (0.9-1.1) Whole Blood INR Sodium 137 (135-145) mmol/L Potassium 5.9 H D (3.3-5.1) mmol/L Chloride 97 (96-108) mmol/L Carbon Dioxide 15 L (22-29) mmol/L Anion Gap 31 H (12-20) BUN 51 H (9-16) mg/dL Creatinine 6.86 H* (0.5-1.4) mg/dL Estim Creat Clear Calc 7.6 Estimated GFR 8 Random Glucose 108 (60-115) mg/dL Lactic Acid (0.5-2.0) mmol/L Calcium 9.1 D (8.4-10.2) mg/dL Troponin I High Sens 58.6 H D (<3.5-35.0) ng/L 12/16/22 12/16/22 12/16/22 Range/Units 19:23 19:24 19:53 WBC (4.8-10.8) X10*3/uL RBC (4.60-5.80) X10*6/uL Hgb (14.0-18.0) g/dl Hct (42.0-52.0) % MCV (80.0-98.0) fL MCH (27.0-33.0) pg MCHC (31.0-36.0) g/dl RDW (11.0-16.0) % Plt Count (160-400) X10*3/uL MPV Immature Gran % (Auto) (0.0-0.4) % Neut % (Auto) (45-73) % Lymph % (Auto) (20-40) % [place] % (Auto) (2-11) % Eos % (Auto) (0-4) % Baso % (Auto) (0-2) % Lymph # (Auto) (1.2-4.9) X10*3/uL [place] # (Auto) (0.1-1.2) X10*3/uL Eos # (Auto) (0.0-0.4) X10*3/uL Baso # (Auto) (0.0-0.2) X10*3/uL Abs Immat Gran (auto) (0.00-0.03) X10*3/uL Absolute Neuts (auto) (2.0-8.3) x10*3/uL Absolute Nucleated RBC (0.0-0.012) X10*3/uL Nucleated RBC % (auto) (0.0-0.2) /100WBC Smear Tech's Comments PT 19.8 H (10.0-13.1) SEC INR 1.7 H (0.9-1.1) Whole Blood INR Cancelled Sodium (135-145) mmol/L Potassium (3.3-5.1) mmol/L Chloride (96-108) mmol/L Carbon Dioxide (22-29) mmol/L Anion Gap (12-20) BUN (9-16) mg/dL Creatinine (0.5-1.4) mg/dL Estim Creat Clear Calc Estimated GFR Random Glucose (60-115) mg/dL Lactic Acid 12.0 H* (0.5-2.0) mmol/L Calcium (8.4-10.2) mg/dL Troponin I High Sens (<3.5-35.0) ng/L Independent Interpretation I performed an independent interpretation of an: EKG Interpretation: Atrial fibrillation with RVR, HR-135, QRS/QTC is within normal limits. Normal sinus rhythm, HR-93, no STEMI, ID/[id number] Radiology Impression Radiologist Impression: My interpretation is in agreement with radiology's impression. External Record Review External record reviewed: Outpatient record and Prior outpatient labs Discharge Plan Discharge Clinical Impression: Atrial fibrillation with RVR, Hyperkalemia, Hypotension, Pneumonia, Pleural effusion, left Patient Disposition: Admitted As Inpatient Prescriptions: No Action apixaban 2.5 mg tablet 2.5 mg PO BID 90 Days Qty: 180 3RF midodrine 10 mg tablet 10 mg PO TID Qty: 90 3RF lactulose 20 gram packet 20 g PO BID Qty: 30 0RF furosemide 40 mg tablet 40 mg PO DAILY ketorolac 0.5 % drops 1 drp ophthalmic (eye) BID allopurinol 100 mg tablet 100 mg PO DAILY metoprolol succinate 25 mg tablet extended release 24 hr 25 mg PO DAILY repaglinide 0.5 mg tablet 0.5 mg PO TID pravastatin 80 mg tablet 80 mg PO BEDTIME prednisone 20 mg tablet 0 mg PO albuterol sulfate [ProAir HFA] 90 mcg/actuation HFA aerosol inhaler 2 puff inhalation Q4-6H PRN melatonin 5 mg capsule PO calcium carbonate 500 mg calcium (1,250 mg) tablet,chewable 500 mg PO TID
[2022-12-16] MEDS: Metoprolol Tartrate 5 MG/5 ML VIAL 2.5 MG IVPUSH (19:25)
[2022-12-16 19:35] LABS: Basophils Percent Auto 0.1 % (0-2); Eosinophils Percent Auto 0.1 % (0-4); Hematocrit 31.5 % (42.0-52.0); Hemoglobin 10.9 g/dl (14.0-18.0); Imm Gran Pct Auto 1.2 % (0.0-0.4); Lymphocytes Absolute Auto 0.4 X10*3/uL (1.2-4.9); Lymphocytes Percent Auto 2.2 % (20-40); MANUAL DIFF FLAG SCAN; Mean Corpuscular HGB Conc 34.6 g/dl (31.0-36.0); Mean Corpuscular Hemoglobin 32.3 pg (27.0-33.0); Mean Corpuscular Volume 93.5 fL (80.0-98.0); Monocytes Absolute Auto 1.1 X10*3/uL (0.1-1.2); Monocytes Percent Auto 6.8 % (2-11); Neutrophils Absolute Auto 14.5 x10*3/uL (2.0-8.3); Neutrophils Percent Auto 89.6 % (45-73); PLT CLUMP 1; Red Blood Count 3.37 X10*6/uL (4.60-5.80); Red Cell Distribution Width 17.6 % (11.0-16.0); SCAN SMEAR FLAG 1
[2022-12-16 19:38] LABS: White Blood Count 16.2 X10*3/uL (4.8-10.8)
[2022-12-16 19:40] LABS: INTERNATIONAL NORM RATIO 1.7 (0.9-1.1); Prothrombin Time 19.8 SEC (10.0-13.1)
--- NOTE | 2022-12-16 19:51 | MHC.EDTECH ---
This Tech assumed care of this Pt upon arrival. Pt placed on soldering machine feeder EKG done and handed to provider. Pt placed on ZOll monitor per Dr Request. blood work done and sent to the lab for processing. !!!NO BLOOD WORK OR VITALS ON LEFT SIDE!!! SIGN HUNG ON MONITOR.
[2022-12-16 19:53] LABS: Platelet Count 66 X10*3/uL (160-400)
[2022-12-16 20:07] LABS: Troponin-I High Sensitivity 58.6 ng/L (<3.5-35.0)
[2022-12-16 20:09] LABS: SLIDE REVIEW VERIFIED
[2022-12-16 20:12] LABS: Anion Gap 31 (12-20); Blood Urea Nitrogen 51 mg/dL (9-16); Calcium 9.1 mg/dL (8.4-10.2); Carbon Dioxide 15 mmol/L (22-29); Chloride 97 mmol/L (96-108); Creatinine Clr Calc Pharmacy 7.6; Estimated Glomerular Filt Rate 8; Glucose Random 108 mg/dL (60-115); Potassium 5.9 mmol/L (3.3-5.1); Sodium 137 mmol/L (135-145)
--- NOTE | 2022-12-16 20:16 | PC.NURSE ---
pt reassessed , b/p improved, hr 97-99 [id number] on room air, family present
[2022-12-16] MEDS: Magnesium Sulfate/D5W 1 GM/100 ML PIGGYBACK IV (20:47)
[2022-12-16] MEDS: Dextrose 10 % 250 ML 750 ML IV (20:59)
[2022-12-16] MEDS: Insulin Regular, Human 100 UNIT/ML 3 ML VIAL IVPUSH (20:59)
[2022-12-16 21:05] LABS: Lactic Acid 11.8 mmol/L (0.5-2.0)
[2022-12-16 21:07] LABS: Alanine Aminotransferase 28 U/L (0-40); Albumin Level 2.3 g/dL (3.5-5.0); Alkaline Phosphatase 351 U/L (39-117); Aspartate Amino Transferase 71 U/L (5-37); Bilirubin Direct 1.4 mg/dL (0.0-0.5); Bilirubin Total 3.2 mg/dL (0.0-1.0); Total Protein 5.8 g/dL (6.5-8.0)
--- NOTE | 2022-12-16 21:24 | PHA.MEDREC ---
Pharmacy Consult ? Medication Reconciliation Pharmacy has completed the medication reconciliation. Patient's family at bedside had an updated list of patient's meds with them.
[2022-12-16] MEDS: Calcium Gluconate/NaCl,Iso-Osm 2 GM/100 ML PLAST..BAG IV (21:38)
[2022-12-16] MEDS: Midodrine HCl 10 MG TABLET PO (21:56)
[2022-12-16 21:57] LABS: Reflex Lactate? Lactic Acid Added
[2022-12-16] MEDS: cefTRIAXone sodium 1 GM in 0.9 % Sodium Chloride 50 ML IV (22:09)
--- NOTE | 2022-12-16 22:14 | PM.IMHP ---
History of Present Illness Date of Service: 12/16/22 Chief Complaint: Hypotension This is a 87-year-old male with pertinent history of ESRD on hemodialysis, paroxysmal atrial fibrillation on anticoagulation, unspecified liver cirrhosis, QT prolongation on beta-rosendo, 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 Patient is a poor historian and most of the history was taken by daughters at bedside. Patient was found to be hypotensive even before his dialysis session today. Dialysis was initiated and patient's blood pressure further dropped and he was sent to the ER for further evaluation. Patient endorses chills, palpitations and productive cough. The daughter states that patient has been coughing a lot with liquids over the last few days. No fever, chest discomfort, abdominal pain, changes in bowel habits. Does have abdominal distension in the emergency department, patient was found to be hypotensive and he was found to be in AFib with RVR. Leukocytosis was present and imaging was concerning for pneumonia. Review of Systems Constitutional: Constitutional: Reports chills Cardiovascular: Cardiovascular: Reports palpitations Respiratory: Respiratory: Reports cough Gastrointestinal: Gastrointestinal: Reports bloating Genitourinary: Genitourinary: Reports no additional male genitourinary complaints Endocrine: Endocrine: Reports palpitations [facility] Medical History Cirrhosis ESRD (end stage renal disease) on dialysis Idiopathic hypotension NICM (nonischemic cardiomyopathy) PAF (paroxysmal atrial fibrillation) Family History Father No problems noted. Mother No problems noted. Surgical History H/O colonoscopy History of appendectomy Social History Alcohol intake: never Patient Tobacco Use Status: Never used Tobacco Smoked in Last 30 Days: No Use of substances other than those prescribed or required for medical reasons: No Advance Directives: No Advance Directives Information Provided: No Meds Allergies Allergy/AdvReac Type Severity Reaction Status Date / Time No Known Allergies Allergy Verified 11/10/22 10:58 [No Known Allergies*] Active Medications: Current Medications Acetaminophen (Acetaminophen 325 Mg Tablet) 650 mg PO Q6H PRN PRN Reason: Pain, Mild (Pain Scale 1-3) Acetaminophen (Acetaminophen Supp 650 Mg Supp.Rect) 650 mg MA Q6H PRN PRN Reason: Pain, Mild (Pain Scale 1-3) Dextrose (D10) 250 mls @ 750 mls/hr IV Q15M PRN PRN Reason: per Hypoglycemia Standing Ord. Last Infusion: 12/16/22 21:19 Dose: Infused Ampicillin Sodium/Sulbactam (Sodium 3 gm/ Sodium Chloride) 100 mls @ 200 mls/hr IV Q24H [facility] Melatonin (Melatonin 3 Mg Tablet) 6 mg PO BEDTIME PRN PRN Reason: Insomnia Ondansetron HCl (Ondansetron Hcl 4 Mg/2 Ml Vial) 4 mg IVPUSH Q8H PRN PRN Reason: Nausea and Vomiting Pharmacy Consult (Consult Rx Perform Med Rec) 1 each MISCELLANE ONCE PRN PRN Reason: Consult order Sodium Chloride (0.9 % Sodium Chloride Flush 3 Ml Syringe) [facility] Home Medications Medication Instructions Recorded Confirmed Last Taken Type allopurinol 100 mg tablet 100 mg PO SUTUTH@0900 09/01/20 12/16/22 12/15/22 History metoprolol succinate 25 mg 12.5 mg PO BEDTIME 09/01/20 12/16/22 12/15/22 History tablet,extended release 24 hr calcium acetate 667 mg tablet 667 mg PO DAILY 12/16/22 12/16/22 12/16/22 09:00 History ferrous sulfate 324 mg (65 mg 324 mg PO DAILY 12/16/22 12/16/22 12/16/22 09:00 History iron) tablet,delayed release glipizide 5 mg tablet, extended 5 mg PO DAILY 12/16/22 12/16/22 12/16/22 09:00 History release 24 hr lactulose 10 gram/15 mL oral 15 ml PO BID 12/16/22 12/16/22 12/16/22 09:00 History solution midodrine 10 mg tablet 15 mg PO TID 12/16/22 12/16/22 12/16/22 13:30 History auisxywz-aqi-hjhig acid 300 1 tab PO DAILY 12/16/22 12/16/22 12/16/22 09:00 History mcg-lycopene 600 mcg-lutein 300 mcg tablet (Centrum Silver Men) omeprazole 20 mg capsule,delayed 20 mg PO DAILY@0630 12/16/22 12/16/22 12/16/22 06:30 History release rifaximin 550 mg tablet 550 mg PO BID 12/16/22 12/16/22 12/16/22 09:00 History sevelamer carbonate 800 mg tablet 800 mg PO BID 12/16/22 12/16/22 12/16/22 09:00 History Physical Exam Vital Signs and Narrative: Vital Signs: Last Vital Signs Temp 97.8 F 12/16/22 18:59 Pulse 92 12/16/22 21:25 Resp 18 12/16/22 21:25 BP 91/44 L 12/16/22 21:25 Pulse Ox 95 12/16/22 21:25 O2 Del Method Room Air 12/16/22 21:25 BMI result Body Mass Index 33.7 Elderly male lying in bed in no distress Neck supple, no JVD Regular rate and rhythm, S1-S2 heard Regular breath sounds bilaterally, no wheezing or crackles appreciated Abdomen distended nontender, no guarding, no rigidity Patient is awake, alert and oriented to self, place, and person ; no focal motor deficit Psych: Normal mood B/l pedal edema Results Labs 12/16/22 19:23 12/16/22 19:23 Labs: Laboratory Results - last 24 hr 12/16/22 12/16/22 12/16/22 19:23 19:23 19:23 MCV 93.5 MCH 32.3 MCHC 34.6 RDW 17.6 H Plt Count 66 L D MPV TNP Immature Gran % (Auto) 1.2 H Neut % (Auto) 89.6 H Lymph % (Auto) 2.2 L [place] % (Auto) 6.8 Eos % (Auto) 0.1 Baso % (Auto) 0.1 Lymph # (Auto) 0.4 L [place] # (Auto) 1.1 Eos # (Auto) 0.0 Baso # (Auto) 0.0 Abs Immat Gran (auto) 0.20 H Absolute Neuts (auto) 14.5 H Absolute Nucleated RBC 0.000 Nucleated RBC % (auto) 0.0 Smear Tech's Comments VERIFIED PT INR Whole Blood INR Anion Gap 31 H Estim Creat Clear Calc 7.6 Estimated GFR 8 Random Glucose 108 Lactic Acid Calcium 9.1 D Total Bilirubin 3.2 H Direct Bilirubin 1.4 H AST 71 H ALT 28 Alkaline Phosphatase 351 H Troponin I High Sens 58.6 H D Total Protein 5.8 L Albumin 2.3 L 12/16/22 12/16/22 12/16/22 19:23 19:24 19:53 MCV MCH MCHC RDW Plt Count MPV Immature Gran % (Auto) Neut % (Auto) Lymph % (Auto) [place] % (Auto) Eos % (Auto) Baso % (Auto) Lymph # (Auto) [place] # (Auto) Eos # (Auto) Baso # (Auto) Abs Immat Gran (auto) Absolute Neuts (auto) Absolute Nucleated RBC Nucleated RBC % (auto) Smear Tech's Comments PT 19.8 H INR 1.7 H Whole Blood INR Cancelled Anion Gap Estim Creat Clear Calc Estimated GFR Random Glucose Lactic Acid 12.0 H* Calcium Total Bilirubin Direct Bilirubin AST ALT Alkaline Phosphatase Troponin I High Sens Total Protein Albumin 12/16/22 20:36 MCV MCH MCHC RDW Plt Count MPV Immature Gran % (Auto) Neut % (Auto) Lymph % (Auto) [place] % (Auto) Eos % (Auto) Baso % (Auto) Lymph # (Auto) [place] # (Auto) Eos # (Auto) Baso # (Auto) Abs Immat Gran (auto) Absolute Neuts (auto) Absolute Nucleated RBC Nucleated RBC % (auto) Smear Tech's Comments PT INR Whole Blood INR Anion Gap Estim Creat Clear Calc Estimated GFR Random Glucose Lactic Acid 11.8 H* Calcium Total Bilirubin Direct Bilirubin AST ALT Alkaline Phosphatase Troponin I High Sens Total Protein Albumin Imaging Radiologist's Impressions: Impressions Chest X-Ray 12/16/22 20:00 IMPRESSION: Small left pleural effusion. Increased retrocardiac opacity which could represent atelectasis or pneumonia. 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 #. Sepsis due to pneumonia, suspect aspiration. Will admit patient and initiate empiric IV Unasyn (renally dosed). Blood culture and lactic acid obtained. Will keep NPO and consult speech. Patient resuscitated with IV crystalloids. Blood pressure improved with IV crystalloids #. acute lactic acidosis due to sepsis and liver disease #. Paroxysmal afib with rvr: likely In the setting of above. Converted to normal sinus rhythm with IV metoprolol push in the ER. Continue anticoagulation. Hold metoprolol in the setting of hypotension, resume as appropriate #. decompensated cirrhosis with ascites. Obtain therapeutic paracentesis. Continue lactulose and rifaximin #. hyperkalemia. as pt did not complete dialysis today. given temporizing measures. Ordered lokelma #. ESRD on dialysis: Consulted nephrology. Continue sevelamer #. ptn-[id number]-[id number] diabetes mellitus. Hold glipizide. Initiating Accu-Cheks with sliding scale insulin every 6 hours #. QT prolongation. Holding metoprolol as above #. thrombocytopenia in the setting of cirrhosis DVT prophylaxis: Arie Full code . Discussed with daughter at bedside NPO Admit as inpatient and will require two night minimum hospital stay for IV antibiotics Time Spent With Patient Time: Total time managing care of this patient today ____ minutes. Quality Stroke Does the patient have a stroke diagnosis?: No VTE Prior VTE?: No VTE Risk Level:: Medical - moderate - high VTE Device Contraindication: Treatment Not Indicated VTE Drug Contraindication: N/A - Med Ordered
[2022-12-16] MEDS: Ampicillin Sodium/Sulbactam Na 3 GM in 0.9 % Sodium Chloride 100 ML IV (22:30)
[2022-12-16 22:31] LABS: ~Lactic Acid-LAB USE ONLY 9.3 mmol/L (0.5-2.0)
[2022-12-16 22:40] LABS: Reflex Lactate? Lactic Acid Added
--- NOTE | 2022-12-16 22:46 | PM.SEPSBOL4 ---
Sepsis Bolus Exclusion Sepsis Bolus Exclusion Date of Occurrence: 12/16/22 This patient met severe sepsis criteria due to the following condition(s):: Hypotension and Lactate>=4mmol/L In my clinical judgement the administration of 30 ml/kg of crystalloid would be detrimental to this patient due to the patient's following conditions:: Stage III or IV Chronic Kidney Disease (GFR<30) and Concern for fluid overload Replace the 30 mls/kg with (*zero amount not acceptable): *Note: One of the ruiz must be documented Crystalloids amount given in mls: (rate must be at least 150cc/hr): 500 At a rate of (must be > 125 cchr):: 500
[2022-12-16] MEDS: Sodium Zirconium Cyclosilicate 10 GM POWD.PACK PO (22:56)
[2022-12-16] MEDS: Apixaban 2.5 MG TABLET PO (22:56)
[2022-12-16 22:58] LABS: Glucose, Whole Blood 213 mg/dL (60-115)
[2022-12-17] VITALS (7 sets, daily range): BP systolic 95–136; BP diastolic 50–60; PULSE 85–97; RESP 16–20; TEMP 36.1–37.3; O2SAT 92–94; BMI 29.8
[2022-12-17 00:12] LABS: Reflex Lactate? 2 Y
[2022-12-17 05:09] LABS: Glucose, Whole Blood 129 mg/dL (60-115)
[2022-12-17 06:02] LABS: Basophils Percent Auto 0.2 % (0-2); SCAN SMEAR FLAG 1
[2022-12-17 06:03] LABS: Eosinophils Absolute Auto 0.1 X10*3/uL (0.0-0.4); Eosinophils Percent Auto 0.4 % (0-4); Hemoglobin 9.7 g/dl (14.0-18.0); Imm Gran Abs Auto 0.13 X10*3/uL (0.00-0.03); Lymphocytes Absolute Auto 0.5 X10*3/uL (1.2-4.9); Lymphocytes Percent Auto 3.7 % (20-40); MANUAL DIFF FLAG SCAN; Mean Corpuscular HGB Conc 34.6 g/dl (31.0-36.0); Mean Corpuscular Hemoglobin 31.4 pg (27.0-33.0); Mean Corpuscular Volume 90.6 fL (80.0-98.0); Monocytes Absolute Auto 0.9 X10*3/uL (0.1-1.2); Neutrophils Absolute Auto 11.9 x10*3/uL (2.0-8.3); Neutrophils Percent Auto 87.7 % (45-73); PLT CLUMP 1; Red Blood Count 3.09 X10*6/uL (4.60-5.80)
[2022-12-17 06:11] LABS: PLT ABN DIST 1; Platelet Count 50 X10*3/uL (160-400); White Blood Count 13.5 X10*3/uL (4.8-10.8)
[2022-12-17 06:31] LABS: Anion Gap 19 (12-20); Blood Urea Nitrogen 54 mg/dL (9-16); Carbon Dioxide 23 mmol/L (22-29); Chloride 97 mmol/L (96-108); Creatinine Clr Calc Pharmacy 7.4; Estimated Glomerular Filt Rate 8; Glucose Random 130 mg/dL (60-115); Potassium 5.2 mmol/L (3.3-5.1); Sodium 134 mmol/L (135-145)
[2022-12-17 06:32] LABS: Lactic Acid 3.7 mmol/L (0.5-2.0)
[2022-12-17 06:49] LABS: SLIDE REVIEW VERIFIED
[2022-12-17 07:54] LABS: Reflex Lactate? Lactic Acid Added
[2022-12-17] MEDS: Lactulose 20 GM/30 ML SOLUTION 10 GM PO ×2 (08:44→22:15)
[2022-12-17] MEDS: Apixaban 2.5 MG TABLET PO ×2 (08:45→22:14)
[2022-12-17] MEDS: Ferrous Sulfate 324 MG TABLET.DR PO (08:45)
[2022-12-17] MEDS: Multivitamin TABLET 1 TAB PO (08:45)
[2022-12-17] MEDS: Omeprazole 20 MG CAPSULE.DR PO (08:45)
[2022-12-17] MEDS: Sevelamer Carbonate Tablet 800 MG TABLET PO ×2 (08:45→22:14)
[2022-12-17] MEDS: Midodrine HCl 5 MG TABLET 15 MG PO ×3 (08:45→22:14)
[2022-12-17] MEDS: 0.9 % Sodium Chloride Flush 3 ML SYRINGE IVFLUSH ×3 (08:47→22:23)
[2022-12-17] MEDS: Calcium Acetate 667 MG CAPSULE PO (08:47)
[2022-12-17 08:50] LABS: ~Lactic Acid-LAB USE ONLY 3.4 mmol/L (0.5-2.0)
[2022-12-17 09:03] LABS: Glucose, Whole Blood 102 mg/dL (60-115)
[2022-12-17] MEDS: rifAXIMin 550 MG TABLET PO ×2 (09:30→22:14)
[2022-12-17 10:05] LABS: Reflex Lactate? 2 Y
--- NOTE | 2022-12-17 11:08 | P.CONNP_ITS ---
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 Patient is a poor historian and most of the history was taken by daughters at bedside.? Patient was found to be hypotensive even before his dialysis session today.? Dialysis was initiated and patient's blood pressure further dropped and he was sent to the ER for further evaluation.? Patient endorses chills, palpitations and productive cough.? The daughter states that patient has been coughing a lot with liquids over the last few days.? No fever, chest discomfort, abdominal pain, changes in bowel habits.? Does have abdominal distension Usually gets dialysis at [facility] on Fridays 3rd shift Review of Systems Review of Systems No headache. No nausea vomiting. No abdominal pain. No shortness of breath. No cough. No dysuria urgency or hematuria. No edema. No rash. [facility], [facility] Past Medical History Medical History Cirrhosis ESRD (end stage renal disease) on dialysis Idiopathic hypotension NICM (nonischemic cardiomyopathy) PAF (paroxysmal atrial fibrillation) Family History Family History Father No problems noted. Mother No problems noted. Surgical History Surgical History H/O colonoscopy History of appendectomy Social History Social History Household Members: Family Housing: House Do you presently have visiting nurse or other home services: No Alcohol intake: never Patient Tobacco Use Status: Never used Tobacco Meds Allergies Allergy/AdvReac Type Severity Reaction Status Date / Time No Known Allergies Allergy Verified 11/10/22 10:58 [No Known Allergies*] Active Medications: Current Medications Acetaminophen (Acetaminophen 325 Mg Tablet) 650 mg PO Q6H PRN PRN Reason: Pain, Mild (Pain Scale 1-3) Acetaminophen (Acetaminophen Supp 650 Mg Supp.Rect) 650 mg [place] Q6H PRN PRN Reason: Pain, Mild (Pain Scale 1-3) Allopurinol (Allopurinol 100 Mg Tablet) 100 mg PO SUTUTH@0900 [facility] Apixaban (Apixaban 2.5 Mg Tablet) 2.5 mg PO BID [facility] Last Admin: 12/17/22 08:45 Dose: 2.5 mg Calcium Acetate (Calcium Acetate 667 Mg Capsule) 667 mg PO DAILY [facility] Last Admin: 12/17/22 08:47 Dose: 667 mg Ferrous Sulfate (Ferrous Sulfate 324 Mg Tablet.) 324 mg PO DAILY [facility] Last Admin: 12/17/22 08:45 Dose: 324 mg Glucose (Glucose Gel 15 Gm Gel..Gram.) 15 gm PO Q15M PRN; Protocol PRN Reason: per Hypoglycemia Standing Ord. Dextrose (D10) 250 mls @ 750 mls/hr IV Q15M PRN PRN Reason: per Hypoglycemia Standing Ord. Last Infusion: 12/16/22 21:19 Dose: Infused Ampicillin Sodium/Sulbactam (Sodium 3 gm/ Sodium Chloride) 100 mls @ 200 mls/hr IV Q24H [facility] Last Infusion: 12/16/22 23:00 Dose: Infused Dextrose (D10) 250 mls @ 750 mls/hr IV Q15M PRN; Protocol PRN Reason: per Hypoglycemia Standing Ord. Insulin Human Lispro (Insulin Lispro 100 Unit/Ml 3 Ml Vial) 0 unit SUBCUT Q6H [facility]; Protocol Last Admin: 12/17/22 09:51 Dose: Not Given Lactulose (Lactulose 20 Gm/30 Ml Solution) 10 gm PO BID [facility] Last Admin: 12/17/22 08:44 Dose: 10 gm Melatonin (Melatonin 3 Mg Tablet) 6 mg PO BEDTIME PRN PRN Reason: Insomnia Midodrine (Midodrine Hcl 5 Mg Tablet) 15 mg PO TID [facility] Last Admin: 12/17/22 08:45 Dose: 15 mg Multivitamins/Vitamin C (Multivitamin Tablet) 1 tab PO DAILY [facility] Last Admin: 12/17/22 08:45 Dose: 1 tab Omeprazole (Omeprazole 20 Mg Capsule.) 20 mg PO DAILY@0630 [facility] Last Admin: 12/17/22 08:45 Dose: 20 mg Ondansetron HCl (Ondansetron Hcl 4 Mg/2 Ml Vial) 4 mg IVPUSH Q8H PRN PRN Reason: Nausea and Vomiting Pharmacy Consult (Consult Rx Perform Med Rec) 1 each MISCELLANE ONCE PRN PRN Reason: Consult order Rifaximin (Rifaximin 550 Mg Tablet) 550 mg PO BID [facility] Sevelamer Carbonate (Sevelamer Carbonate Tablet 800 Mg Tablet) 800 mg PO BID [facility] Last Admin: 12/17/22 08:45 Dose: 800 mg Sodium Chloride (0.9 % Sodium Chloride Flush 3 Ml Syringe) 3 ml IVFLUSH QSHIFT [facility] Last Admin: 12/17/22 08:47 Dose: 3 ml Home Medications Medication Instructions Recorded Confirmed Last Taken Type allopurinol 100 mg tablet 100 mg PO SUTUTH@0900 09/01/20 12/16/22 12/15/22 History metoprolol succinate 25 mg 12.5 mg PO BEDTIME 09/01/20 12/16/22 12/15/22 History tablet,extended release 24 hr calcium acetate 667 mg tablet 667 mg PO DAILY 12/16/22 12/16/22 12/16/22 09:00 History ferrous sulfate 324 mg (65 mg 324 mg PO DAILY 12/16/22 12/16/22 12/16/22 09:00 History iron) tablet,delayed release glipizide 5 mg tablet, extended 5 mg PO DAILY 12/16/22 12/16/22 12/16/22 09:00 History release 24 hr lactulose 10 gram/15 mL oral 15 ml PO BID 12/16/22 12/16/22 12/16/22 09:00 History solution midodrine 10 mg tablet 15 mg PO TID 12/16/22 12/16/22 12/16/22 13:30 History duadgnop-phf-urrby acid 300 1 tab PO DAILY 12/16/22 12/16/22 12/16/22 09:00 History mcg-lycopene 600 mcg-lutein 300 mcg tablet (Centrum Silver Men) omeprazole 20 mg capsule,delayed 20 mg PO DAILY@0630 12/16/22 12/16/22 12/16/22 06:30 History release rifaximin 550 mg tablet 550 mg PO BID 12/16/22 12/16/22 12/16/22 09:00 History sevelamer carbonate 800 mg tablet 800 mg PO BID 12/16/22 12/16/22 12/16/22 09:00 History Physical Exam Vital Signs: Last Vital Signs Temp 99.2 F 12/17/22 07:18 Pulse 85 12/17/22 07:18 Resp 18 12/17/22 07:18 BP 104/54 L 12/17/22 07:18 Pulse Ox 94 12/17/22 07:18 O2 Del Method Room Air 12/17/22 07:18 BMI result Body Mass Index 29.8 Comfortable Neck is supple Lung: Air entry equal Heart: S1,S2, normal. No rub Abd: Soft. BS + distended with ascites NS : Alert.No asterexis Ext: 1+ edema Results Lab Results 12/17/22 05:51 12/17/22 05:51 Lab results: Chemistry 12/16/22 12/17/22 19:23 05:51 Sodium 137 134 L Potassium 5.9 H D 5.2 H Carbon Dioxide 15 L 23 BUN 51 H 54 H Creatinine 6.86 H* 6.99 H* Calcium 9.1 D 9.0 Hematology 12/16/22 12/17/22 19:23 05:51 WBC 16.2 H 13.5 H Hgb 10.9 L 9.7 L Plt Count 66 L D 50 L Assessment and Plan (1) ESRD (end stage renal disease) on dialysis: Status: Acute Plan ESRD on hemodialysis Monday. We will dialyze him again today. Mild hyperkalemia Dialysis via a low-potassium bath. Keep him on low-potassium bath. Chronic hypotension Midodrine 10 mg during dialysis. Anemia workup in progress. Cirrhosis/ascites Would arrange for abdominal paracentesis while he is in-house. We will follow him along with the team. Thank you Time Spent With Patient Time: Total time managing care of this patient today ____ minutes. Procedures Date of Service Date of Service: 12/18/22
[2022-12-17 11:35] LABS: Glucose, Whole Blood 93 mg/dL (60-115)
[2022-12-17] MEDS: Midodrine HCl 10 MG TABLET PO (12:38)
--- NOTE | 2022-12-17 12:39 | P.PNIM_ITS ---
Subjective Subjective Date of Service: 12/17/22 Interval History: No acute issues overnight. Blood pressures remain stable Review of Systems Denies chest pain Denies shortness of breath Denies nausea vomiting diarrhea Denies fever chills Physical Exam Vital Signs: Vital Signs: Last Vital Signs Temp 97.6 F 12/17/22 12:00 Pulse 89 12/17/22 12:00 Resp 18 12/17/22 12:00 BP 136/60 12/17/22 12:00 Pulse Ox 94 12/17/22 12:00 O2 Del Method Room Air 12/17/22 12:00 BMI result Body Mass Index 29.8 Const: Other: Awake alert no acute distress Resp: Other: Clear to auscultation bilaterally no rales rhonchi or wheezes Cardio: Other: No S4; positive S1-S2; no S3 murmurs rubs or gallops GI: Other: Soft nontender nondistended normoactive bowel sounds Extrem: Other: No edema bilaterally Objective Data Active Medications Acetaminophen (Acetaminophen 325 Mg Tablet) 650 mg PO Q6H PRN PRN Reason: Pain, Mild (Pain Scale 1-3) Acetaminophen (Acetaminophen Supp 650 Mg Supp.Rect) 650 mg [place] Q6H PRN PRN Reason: Pain, Mild (Pain Scale 1-3) Allopurinol (Allopurinol 100 Mg Tablet) 100 mg PO SUTUTH@0900 [facility] Apixaban (Apixaban 2.5 Mg Tablet) 2.5 mg PO BID [facility] Last Admin: 12/17/22 08:45 Dose: 2.5 mg Documented By: KADEN Calcium Acetate (Calcium Acetate 667 Mg Capsule) 667 mg PO DAILY [facility] Last Admin: 12/17/22 08:47 Dose: 667 mg Documented By: KADEN Ferrous Sulfate (Ferrous Sulfate 324 Mg Tablet.Dr) 324 mg PO DAILY [facility] Last Admin: 12/17/22 08:45 Dose: 324 mg Documented By: KADEN Glucose (Glucose Gel 15 Gm Gel..Gram.) 15 gm PO Q15M PRN; Protocol PRN Reason: per Hypoglycemia Standing Ord. Dextrose (D10) 250 mls @ 750 mls/hr IV Q15M PRN PRN Reason: per Hypoglycemia Standing Ord. Last Infusion: 12/16/22 21:19 Dose: 0 mls/hr Documented By: JERRY Ampicillin Sodium/Sulbactam (Sodium 3 gm/ Sodium Chloride) 100 mls @ 200 mls/hr IV Q24H [facility] Last Infusion: 12/16/22 23:00 Dose: 0 mls/hr Documented By: JERRY Dextrose (D10) 250 mls @ 750 mls/hr IV Q15M PRN; Protocol PRN Reason: per Hypoglycemia Standing Ord. Insulin Human Lispro (Insulin Lispro 100 Unit/Ml 3 Ml Vial) 0 unit SUBCUT Q6H [facility]; Protocol Last Admin: 12/17/22 09:51 Dose: Not Given Documented By: KADEN Non-Admin Reason: in ER Lactulose (Lactulose 20 Gm/30 Ml Solution) 10 gm PO BID [facility] Last Admin: 12/17/22 08:44 Dose: 10 gm Documented By: KADEN Melatonin (Melatonin 3 Mg Tablet) 6 mg PO BEDTIME PRN PRN Reason: Insomnia Midodrine (Midodrine Hcl 5 Mg Tablet) 15 mg PO TID [facility] Last Admin: 12/17/22 08:45 Dose: 15 mg Documented By: KADEN Multivitamins/Vitamin C (Multivitamin Tablet) 1 tab PO DAILY [facility] Last Admin: 12/17/22 08:45 Dose: 1 tab Documented By: KADEN Omeprazole (Omeprazole 20 Mg Capsule.Dr) 20 mg PO DAILY@0630 [facility] Last Admin: 12/17/22 08:45 Dose: 20 mg Documented By: KADEN Ondansetron HCl (Ondansetron Hcl 4 Mg/2 Ml Vial) 4 mg IVPUSH Q8H PRN PRN Reason: Nausea and Vomiting Pharmacy Consult (Consult Rx Perform Med Rec) 1 each MISCELLANE ONCE PRN PRN Reason: Consult order Rifaximin (Rifaximin 550 Mg Tablet) 550 mg PO BID [facility] Sevelamer Carbonate (Sevelamer Carbonate Tablet 800 Mg Tablet) 800 mg PO BID [facility] Last Admin: 12/17/22 08:45 Dose: 800 mg Documented By: KADEN Sodium Chloride (0.9 % Sodium Chloride Flush 3 Ml Syringe) 3 ml IVFLUSH QSHIFT [facility] Last Admin: 12/17/22 08:47 Dose: 3 ml Documented By: KADEN Labs 12/17/22 05:51 12/17/22 05:51 Labs: Laboratory Results - last 24 hr 12/16/22 12/16/22 12/16/22 19:23 19:23 19:23 MCV 93.5 MCH 32.3 MCHC 34.6 RDW 17.6 H Plt Count 66 L D MPV TNP Immature Gran % (Auto) 1.2 H Neut % (Auto) 89.6 H Lymph % (Auto) 2.2 L [place] % (Auto) 6.8 Eos % (Auto) 0.1 Baso % (Auto) 0.1 Lymph # (Auto) 0.4 L [place] # (Auto) 1.1 Eos # (Auto) 0.0 Baso # (Auto) 0.0 Abs Immat Gran (auto) 0.20 H Absolute Neuts (auto) 14.5 H Absolute Nucleated RBC 0.000 Nucleated RBC % (auto) 0.0 Smear Tech's Comments VERIFIED PT INR Whole Blood INR Anion Gap 31 H Estim Creat Clear Calc 7.6 Estimated GFR 8 POC Glucose Random Glucose 108 Lactic Acid Lactic Acid F/U @ 2Hr Lactic Acid F/U @ 4Hr Calcium 9.1 D Total Bilirubin 3.2 H Direct Bilirubin 1.4 H AST 71 H ALT 28 Alkaline Phosphatase 351 H Troponin I High Sens 58.6 H D Total Protein 5.8 L Albumin 2.3 L 12/16/22 12/16/22 12/16/22 19:23 19:24 19:53 MCV MCH MCHC RDW Plt Count MPV Immature Gran % (Auto) Neut % (Auto) Lymph % (Auto) [place] % (Auto) Eos % (Auto) Baso % (Auto) Lymph # (Auto) [place] # (Auto) Eos # (Auto) Baso # (Auto) Abs Immat Gran (auto) Absolute Neuts (auto) Absolute Nucleated RBC Nucleated RBC % (auto) Smear Tech's Comments PT 19.8 H INR 1.7 H Whole Blood INR Cancelled Anion Gap Estim Creat Clear Calc Estimated GFR POC Glucose Random Glucose Lactic Acid 12.0 H* Lactic Acid F/U @ 2Hr Lactic Acid F/U @ 4Hr Calcium Total Bilirubin Direct Bilirubin AST ALT Alkaline Phosphatase Troponin I High Sens Total Protein Albumin 12/16/22 12/16/22 12/16/22 20:36 22:08 22:53 MCV MCH MCHC RDW Plt Count MPV Immature Gran % (Auto) Neut % (Auto) Lymph % (Auto) [place] % (Auto) Eos % (Auto) Baso % (Auto) Lymph # (Auto) [place] # (Auto) Eos # (Auto) Baso # (Auto) Abs Immat Gran (auto) Absolute Neuts (auto) Absolute Nucleated RBC Nucleated RBC % (auto) Smear Tech's Comments PT INR Whole Blood INR Anion Gap Estim Creat Clear Calc Estimated GFR POC Glucose 213 H Random Glucose Lactic Acid 11.8 H* Lactic Acid F/U @ 2Hr 9.3 H* Lactic Acid F/U @ 4Hr Calcium Total Bilirubin Direct Bilirubin AST ALT Alkaline Phosphatase Troponin I High Sens Total Protein Albumin 12/17/22 12/17/22 12/17/22 05:05 05:51 05:51 MCV 90.6 MCH 31.4 MCHC 34.6 RDW 17.0 H Plt Count 50 L MPV Not Reportable Immature Gran % (Auto) 1.0 H Neut % (Auto) 87.7 H Lymph % (Auto) 3.7 L [place] % (Auto) 7.0 Eos % (Auto) 0.4 Baso % (Auto) 0.2 Lymph # (Auto) 0.5 L [place] # (Auto) 0.9 Eos # (Auto) 0.1 Baso # (Auto) 0.0 Abs Immat Gran (auto) 0.13 H Absolute Neuts (auto) 11.9 H Absolute Nucleated RBC 0.000 Nucleated RBC % (auto) 0.0 Smear Tech's Comments VERIFIED PT INR Whole Blood INR Anion Gap Estim Creat Clear Calc Estimated GFR POC Glucose 129 H Random Glucose Lactic Acid 3.7 H* Lactic Acid F/U @ 2Hr Lactic Acid F/U @ 4Hr Calcium Total Bilirubin Direct Bilirubin AST ALT Alkaline Phosphatase Troponin I High Sens Total Protein Albumin 12/17/22 12/17/22 12/17/22 05:51 08:02 08:45 MCV MCH MCHC RDW Plt Count MPV Immature Gran % (Auto) Neut % (Auto) Lymph % (Auto) [place] % (Auto) Eos % (Auto) Baso % (Auto) Lymph # (Auto) [place] # (Auto) Eos # (Auto) Baso # (Auto) Abs Immat Gran (auto) Absolute Neuts (auto) Absolute Nucleated RBC Nucleated RBC % (auto) Smear Tech's Comments PT INR Whole Blood INR Anion Gap 19 Estim Creat Clear Calc 7.4 Estimated GFR 8 POC Glucose 102 Random Glucose 130 H Lactic Acid Lactic Acid F/U @ 2Hr 3.4 H* Lactic Acid F/U @ 4Hr Calcium 9.0 Total Bilirubin Direct Bilirubin AST ALT Alkaline Phosphatase Troponin I High Sens Total Protein Albumin 12/17/22 12/17/22 10:13 11:24 MCV MCH MCHC RDW Plt Count MPV Immature Gran % (Auto) Neut % (Auto) Lymph % (Auto) [place] % (Auto) Eos % (Auto) Baso % (Auto) Lymph # (Auto) [place] # (Auto) Eos # (Auto) Baso # (Auto) Abs Immat Gran (auto) Absolute Neuts (auto) Absolute Nucleated RBC Nucleated RBC % (auto) Smear Tech's Comments PT INR Whole Blood INR Anion Gap Estim Creat Clear Calc Estimated GFR POC Glucose 93 Random Glucose Lactic Acid Lactic Acid F/U @ 2Hr Lactic Acid F/U @ 4Hr 3.0 H* Calcium Total Bilirubin Direct Bilirubin AST ALT Alkaline Phosphatase Troponin I High Sens Total Protein Albumin Assessment and Plan (1) Atrial fibrillation with RVR: Status: Acute (2) Pneumonia: Status: Acute (3) Cirrhosis: Status: Acute Plan This is a 87-year-old male with pertinent history of ESRD on hemodialysis, paroxysmal atrial fibrillation on anticoagulation, unspecified liver cirrhosis, QT prolongation on beta-rosendo, 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 1.Sepsis due to pneumonia (sepsis resolved) -really does Unasyn -follow-up cultures 2.Paroxysmal afib with rvr -now are normal sinus rhythm -continue outpatient therapies including anticoagulation -adjust as clinically indicated 3.Decompensated cirrhosis -lactulose/rifimixin consider paracentesis 12/19/2022 4.ESRD on dialysis -HD as per Renal -follow renals/divalents 5.Xlg-cimpcvg-kypumsyor diabetes mellitus -acceptable control on current therapies -lisprocorrectional scale -add back therapies when appropriate Full code Arie Patient will require ongoing hospitalization for IV antibiotics to treat pneumonia Time Spent With Patient Time: Total time managing care of this patient today ____ minutes. Quality Stroke Does the patient have a stroke diagnosis?: No VTE Prior VTE?: No VTE Risk Level:: Medical - moderate - high VTE Device Contraindication: Treatment Not Indicated VTE Drug Contraindication: N/A - Med Ordered
[2022-12-17] MEDS: Acetaminophen 325 MG TABLET 650 MG PO (15:56)
--- NOTE | 2022-12-17 17:15 | PC.NURSE ---
Pt tansfered to this nurse from [facility] after dialysis. Pt never seen by speech (d/t concern of aspiration pna). States havent eaten in days, spoke to MD sharda corey to due bedside swallow eval. Pt passed it for this nurse. No issues swallowing pudding and h20. D/t pass concerns still having pt sit up @ high fowlers.
[2022-12-17 17:50] LABS: Glucose, Whole Blood 74 mg/dL (60-115)
[2022-12-17] MEDS: Ampicillin Sodium/Sulbactam Na 3 GM in 0.9 % Sodium Chloride 100 ML IV (22:26)
[2022-12-17 22:39] LABS: Glucose, Whole Blood 112 mg/dL (60-115)
[2022-12-18 03:48] VITALS: BP 112/56; PULSE 88; RESP 18; TEMP 36.4; O2SAT 94
[2022-12-18 05:33] LABS: Glucose, Whole Blood 85 mg/dL (60-115)
[2022-12-18] MEDS: Omeprazole 20 MG CAPSULE.DR PO (05:39)
[2022-12-18 07:21] VITALS: BP 122/60; PULSE 86; RESP 20; TEMP 36.2
[2022-12-18] MEDS: rifAXIMin 550 MG TABLET PO ×2 (08:17→20:47)
[2022-12-18] MEDS: Ferrous Sulfate 324 MG TABLET.DR PO (08:17)
[2022-12-18] MEDS: Midodrine HCl 5 MG TABLET 15 MG PO ×3 (08:17→20:47)
[2022-12-18] MEDS: Lactulose 20 GM/30 ML SOLUTION 10 GM PO ×2 (08:17→20:48)
[2022-12-18] MEDS: Apixaban 2.5 MG TABLET PO ×2 (08:17→20:47)
[2022-12-18] MEDS: Calcium Acetate 667 MG CAPSULE PO (08:18)
[2022-12-18] MEDS: Sevelamer Carbonate Tablet 800 MG TABLET PO ×2 (08:18→20:47)
[2022-12-18] MEDS: Multivitamin TABLET 1 TAB PO (08:18)
[2022-12-18] MEDS: 0.9 % Sodium Chloride Flush 3 ML SYRINGE IVFLUSH ×3 (08:26→20:47)
[2022-12-18] MEDS: allopurinoL 100 MG TABLET PO (08:26)
[2022-12-18 11:15] LABS: Glucose, Whole Blood 173 mg/dL (60-115)
--- NOTE | 2022-12-18 11:40 | HO.PM.IMPN ---
Subjective Subjective Date of Service: 12/18/22 Interval History: No acute issues overnight. BP remains stable Review of Systems Denies chest pain Denies shortness of breath Denies nausea vomiting diarrhea Denies fever chills Physical Exam Vital Signs: Vital Signs: Last Vital Signs Temp 97.2 F 12/18/22 07:21 Pulse 86 12/18/22 07:21 Resp 20 12/18/22 07:21 BP 122/60 12/18/22 07:21 Pulse Ox 94 12/18/22 03:48 O2 Del Method Room Air 12/18/22 03:48 BMI result Body Mass Index 29.8 Const: Other: Awake alert no acute distress Resp: Other: Clear to auscultation bilaterally no rales rhonchi or wheezes Cardio: Other: No S4; positive S1-S2; no S3 murmurs rubs or gallops GI: Other: Soft nontender nondistended normoactive bowel sounds Extrem: Other: No edema bilaterally Objective Data Active Medications Acetaminophen (Acetaminophen 325 Mg Tablet) 650 mg PO Q6H PRN PRN Reason: Pain, Mild (Pain Scale 1-3) Last Admin: 12/17/22 15:56 Dose: 650 mg Documented By: KM Acetaminophen (Acetaminophen Supp 650 Mg Supp.Rect) 650 mg [place] Q6H PRN PRN Reason: Pain, Mild (Pain Scale 1-3) Allopurinol (Allopurinol 100 Mg Tablet) 100 mg PO SUTUTH@0900 [facility] Last Admin: 12/18/22 08:26 Dose: 100 mg Documented By: KM Apixaban (Apixaban 2.5 Mg Tablet) 2.5 mg PO BID [facility] Last Admin: 12/18/22 08:17 Dose: 2.5 mg Documented By: KM Calcium Acetate (Calcium Acetate 667 Mg Capsule) 667 mg PO DAILY [facility] Last Admin: 12/18/22 08:18 Dose: 667 mg Documented By: KM Ferrous Sulfate (Ferrous Sulfate 324 Mg Tablet.) 324 mg PO DAILY [facility] Last Admin: 12/18/22 08:17 Dose: 324 mg Documented By: KM Glucose (Glucose Gel 15 Gm Gel..Gram.) 15 gm PO Q15M PRN; Protocol PRN Reason: per Hypoglycemia Standing Ord. Dextrose (D10) 250 mls @ 750 mls/hr IV Q15M PRN PRN Reason: per Hypoglycemia Standing Ord. Last Infusion: 12/16/22 21:19 Dose: 0 mls/hr Documented By: JERRY Ampicillin Sodium/Sulbactam (Sodium 3 gm/ Sodium Chloride) 100 mls @ 200 mls/hr IV Q24H [facility] Last Infusion: 12/17/22 23:02 Dose: 0 mls/hr Documented By: NORM Dextrose (D10) 250 mls @ 750 mls/hr IV Q15M PRN; Protocol PRN Reason: per Hypoglycemia Standing Ord. Insulin Human Lispro (Insulin Lispro 100 Unit/Ml 3 Ml Vial) 0 unit SUBCUT Q6H [facility]; Protocol Last Admin: 12/18/22 05:39 Dose: Not Given Documented By: NORM Non-Admin Reason: No Insulin Coverage Lactulose (Lactulose 20 Gm/30 Ml Solution) 10 gm PO BID [facility] Last Admin: 12/18/22 08:17 Dose: 10 gm Documented By: KM Melatonin (Melatonin 3 Mg Tablet) 6 mg PO BEDTIME PRN PRN Reason: Insomnia Midodrine (Midodrine Hcl 5 Mg Tablet) 15 mg PO TID [facility] Last Admin: 12/18/22 08:17 Dose: 15 mg Documented By: KM Multivitamins/Vitamin C (Multivitamin Tablet) 1 tab PO DAILY [facility] Last Admin: 12/18/22 08:18 Dose: 1 tab Documented By: KM Omeprazole (Omeprazole 20 Mg Capsule.) 20 mg PO DAILY@0630 [facility] Last Admin: 12/18/22 05:39 Dose: 20 mg Documented By: NORM Ondansetron HCl (Ondansetron Hcl 4 Mg/2 Ml Vial) 4 mg IVPUSH Q8H PRN PRN Reason: Nausea and Vomiting Oxycodone HCl (Oxycodone Hcl Immed Release 5 Mg Tablet) 5 mg PO Q4H PRN PRN Reason: Pain, Moderate(Pain Scale 4-6) Pharmacy Consult (Consult Rx Perform Med Rec) 1 each MISCELLANE ONCE PRN PRN Reason: Consult order Rifaximin (Rifaximin 550 Mg Tablet) 550 mg PO BID [facility] Last Admin: 12/18/22 08:17 Dose: 550 mg Documented By: HO.SWEITZM Sevelamer Carbonate (Sevelamer Carbonate Tablet 800 Mg Tablet) 800 mg PO BID [facility] Last Admin: 12/18/22 08:18 Dose: 800 mg Documented By: KM Sodium Chloride (0.9 % Sodium Chloride Flush 3 Ml Syringe) 3 ml IVFLUSH QSHIFT [facility] Last Admin: 12/18/22 08:26 Dose: 3 ml Documented By: KM Labs 12/17/22 05:51 12/17/22 05:51 Labs: Laboratory Results - last 24 hr 12/17/22 12/17/22 12/18/22 17:44 22:35 05:29 POC Glucose 74 112 85 12/18/22 11:11 POC Glucose 173 H Microbiology Microbiology Results: Microbiology 12/16/22 19:53 Blood Culture - Preliminary Blood - Venous No growth after 24 hours. 12/16/22 19:53 Blood Culture - Preliminary Blood - Venous No growth after 24 hours. 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 Hypotensive on dialysis. Admitted to floor and seen in consultation by Renal. Midodrine added during dialysis as well as t.i.d. scheduled. Patient rate remained hemodynamically stable with these therapies 1.Sepsis due to pneumonia (sepsis resolved) -renal dose Unasyn -follow-up cultures 2.Paroxysmal afib with rvr -now are normal sinus rhythm -continue outpatient therapies including anticoagulation -adjust as clinically indicated 3.Decompensated cirrhosis (Dr. Zamora recommended paracentesis 12/19/2022. Books) -lactulose/rifimixin -paracentesis 12/19/2022 4.ESRD on dialysis -HD as per Renal -follow renals/divalents 5.[id number]-gcdmkqwwd diabetes mellitus -acceptable control on current therapies -lisprocorrectional scale -add back therapies when appropriate Full code Arie Patient will require ongoing hospitalization for IV antibiotics to treat pneumonia Time Spent With Patient Time: Total time managing care of this patient today ____ minutes. Quality Stroke Does the patient have a stroke diagnosis?: No VTE Prior VTE?: No VTE Risk Level:: Medical - moderate - high VTE Device Contraindication: Treatment Not Indicated VTE Drug Contraindication: N/A - Med Ordered
--- NOTE | 2022-12-18 12:09 | PM.PNNEP ---
Subjective Subjective Date of Service: 12/19/22 Interval history: No acute issues overnight. BP remains stable s/p HD Physical Exam Vital Signs: Vital Signs: Last Vital Signs Temp 97.2 F 12/18/22 07:21 Pulse 86 12/18/22 07:21 Resp 20 12/18/22 07:21 BP 122/60 12/18/22 07:21 Pulse Ox 94 12/18/22 03:48 O2 Del Method Room Air 12/18/22 03:48 BMI result Body Mass Index 29.8 Comfortable Neck is supple Lung: Air entry equal Heart: S1,S2, normal. No rub Abd: Soft. BS + distended NS : Alert.No asterexis Ext: No edema Objective Data Labs 12/17/22 05:51 12/17/22 05:51 Labs: Laboratory Results - last 24 hr 12/17/22 12/17/22 12/18/22 17:44 22:35 05:29 POC Glucose 74 112 85 12/18/22 11:11 POC Glucose 173 H Microbiology Microbiology Results: Microbiology 12/16/22 19:53 Blood - Venous Blood Culture - Preliminary No growth after 24 hours. 12/16/22 19:53 Blood - Venous Blood Culture - Preliminary No growth after 24 hours. Procedures Date of Service Date of Service: 12/19/22 Assessment & Plan Assessment and plan (1) ESRD (end stage renal disease) on dialysis: Status: Acute Plan ESRD on hemodialysis Monday.? We will dialyze MWF Mild hyperkalemia Dialysis via a low-potassium bath.? Keep him on low-potassium bath.? Chronic hypotension Midodrine 10 mg during dialysis.? Anemia workup in progress.? Cirrhosis/ascites Await abdominal paracentesis We will follow him along with the team.? Thank you Time Spent With Patient Time: Total time managing care of this patient today ____ minutes. Progress Note: Quality Stroke Does the patient have a stroke diagnosis?: No
--- NOTE | 2022-12-18 12:20 | MHC.CM.PN ---
pt lives with and dgter goes to [facility] for dialysis mon and mon has own ride home had no previous servcies dc plan home with family and dialysis
[2022-12-18 16:00] VITALS: BP 114/57; PULSE 86; RESP 20; TEMP 36.1; O2SAT 95
[2022-12-18 16:16] LABS: Glucose, Whole Blood 173 mg/dL (60-115)
--- NOTE | 2022-12-18 19:39 | ECG_ITS ---
Test Reason : HYPOTENSIVE Blood Pressure : / mmHG Vent. Rate : 135 BPM Atrial Rate : 000 BPM P-R Int : 000 ms QRS Dur : 076 ms QT Int : 322 ms P-R-T Axes : 000 008 112 degrees QTc Int : 483 ms Atrial fibrillation with rapid ventricular response Low voltage QRS Cannot rule out Anterior infarct (cited on or before 21-NOV-2022) Abnormal ECG When compared with ECG of 21-NOV-2022 22:25, Atrial fibrillation has replaced Sinus rhythm Vent. rate has increased BY 48 BPM Nonspecific T wave abnormality now evident in Lateral leads Referred By: Katty Rebolledo Electronically Signed By:MAXIMO ARNOLD MD
[2022-12-18 20:00] VITALS: BP 106/55; PULSE 60; RESP 16; TEMP 36.4; O2SAT 98
[2022-12-18] MEDS: Ampicillin Sodium/Sulbactam Na 3 GM in 0.9 % Sodium Chloride 100 ML IV (20:50)
[2022-12-19] VITALS (9 sets, daily range): BP systolic 90–135; BP diastolic 51–77; PULSE 74–96; RESP 16–20; TEMP 35.7–36.9; O2SAT 93–96
[2022-12-19] MEDS: Omeprazole 20 MG CAPSULE.DR PO (06:52)
[2022-12-19 07:13] LABS: Glucose, Whole Blood 127 mg/dL (60-115)
[2022-12-19] MEDS: Multivitamin TABLET 1 TAB PO (08:07)
[2022-12-19] MEDS: 0.9 % Sodium Chloride Flush 3 ML SYRINGE IVFLUSH ×3 (08:07→20:08)
[2022-12-19] MEDS: rifAXIMin 550 MG TABLET PO ×2 (08:07→20:07)
[2022-12-19] MEDS: Midodrine HCl 5 MG TABLET 15 MG PO ×3 (08:07→20:07)
[2022-12-19] MEDS: Ferrous Sulfate 324 MG TABLET.DR PO (08:07)
[2022-12-19] MEDS: Sevelamer Carbonate Tablet 800 MG TABLET PO ×2 (08:08→20:07)
[2022-12-19] MEDS: Calcium Acetate 667 MG CAPSULE PO (08:08)
--- NOTE | 2022-12-19 09:16 | MHC.CLN ---
NUTRITION PATIENT WITH DX DIABETES AND ESRD ON HEMODIALYSIS. DIET CHANGED PER DIALYSIS PARAMETERS: DIABETIC 2000 KCALS, 2 G SODIUM, LOW POTASSIUM, LOW PHOSPHOROUS.
[2022-12-19 09:30] LABS: Hemoglobin 11.4 g/dl (14.0-18.0); Mean Corpuscular Volume 91.3 fL (80.0-98.0)
[2022-12-19 09:31] LABS: Hematocrit 32.7 % (42.0-52.0); Mean Corpuscular HGB Conc 34.9 g/dl (31.0-36.0); Mean Corpuscular Hemoglobin 31.8 pg (27.0-33.0); PLT CLUMP 1; Red Blood Count 3.58 X10*6/uL (4.60-5.80); Red Cell Distribution Width 18.1 % (11.0-16.0)
[2022-12-19 09:39] LABS: PLT ABN DIST 1; White Blood Count 12.3 X10*3/uL (4.8-10.8)
[2022-12-19 09:52] LABS: Anion Gap 21 (12-20); Blood Urea Nitrogen 55 mg/dL (9-16); Carbon Dioxide 18 mmol/L (22-29); Chloride 98 mmol/L (96-108); Creatinine Clr Calc Pharmacy 7.7; Estimated Glomerular Filt Rate 7; Glucose Random 139 mg/dL (60-115); Potassium 4.9 mmol/L (3.3-5.1); Sodium 132 mmol/L (135-145)
[2022-12-19 09:55] LABS: Platelet Count 72 X10*3/uL (160-400)
[2022-12-19 10:17] LABS: Procalcitonin 2.97 ng/mL
--- NOTE | 2022-12-19 10:24 | PM.PNNEP ---
Subjective Subjective Date of Service: 12/20/22 Interval history: No acute issues overnight. s/p HD Family at bedside Physical Exam Vital Signs: Vital Signs: Last Vital Signs Temp 96.3 F L 12/19/22 07:08 Pulse 92 12/19/22 07:08 Resp 18 12/19/22 07:08 BP 122/77 12/19/22 07:08 Pulse Ox 96 12/19/22 07:08 O2 Del Method Room Air 12/19/22 07:08 BMI result Body Mass Index 29.8 Const: Other: Awake alert no acute distress Resp: Other: Clear to auscultation bilaterally no rales rhonchi or wheezes Cardio: Other: No S4; positive S1-S2; no S3 murmurs rubs or gallops GI: Other: Soft nontender nondistended normoactive bowel sounds Extrem: Other: No edema bilaterally Objective Data Labs 12/19/22 09:03 12/19/22 09:03 Labs: Laboratory Results - last 24 hr 12/18/22 12/18/22 12/19/22 11:11 16:06 07:09 WBC RBC Hgb Hct MCV MCH MCHC RDW Plt Count MPV Absolute Nucleated RBC Nucleated RBC % (auto) Sodium Potassium Chloride Carbon Dioxide Anion Gap BUN Creatinine Estim Creat Clear Calc Estimated GFR POC Glucose 173 H 173 H 127 H Random Glucose Calcium Procalcitonin 12/19/22 12/19/22 09:03 09:03 WBC 12.3 H RBC 3.58 L Hgb 11.4 L Hct 32.7 L MCV 91.3 MCH 31.8 MCHC 34.9 RDW 18.1 H Plt Count 72 L D MPV Not Reportable Absolute Nucleated RBC 0.000 Nucleated RBC % (auto) 0.0 Sodium 132 L Potassium 4.9 Chloride 98 Carbon Dioxide 18 L Anion Gap 21 H BUN 55 H Creatinine 7.28 H* Estim Creat Clear Calc 7.7 Estimated GFR 7 POC Glucose Random Glucose 139 H Calcium 9.0 Procalcitonin 2.97 Microbiology Microbiology Results: Microbiology 12/16/22 19:53 Blood - Venous Blood Culture - Preliminary No growth after 48 hours. 12/16/22 19:53 Blood - Venous Blood Culture - Preliminary No growth after 48 hours. Procedures Date of Service Date of Service: 12/20/22 Assessment & Plan Assessment and plan (1) ESRD (end stage renal disease) on dialysis: Status: Acute Plan ESRD on hemodialysis Monday.? We will dialyze MWF Mild hyperkalemia Dialysis via a low-potassium bath.? Keep him on low-potassium bath.? Chronic hypotension Midodrine 10 mg during dialysis.? Anemia workup in progress.? Cirrhosis/ascites Await abdominal paracentesis We will follow him along with the team.? Thank you Time Spent With Patient Time: Total time managing care of this patient today ____ minutes. Progress Note: Quality Stroke Does the patient have a stroke diagnosis?: No
--- NOTE | 2022-12-19 11:05 | PC.NURSE ---
MD Garcia made aware Pt and refusing POC glucose checks, despite education, pt continues to decline.
--- NOTE | 2022-12-19 11:22 | HO.PM.IMPN ---
Subjective Subjective Date of Service: 12/19/22 Interval History: history taken in [place]an and Greek from patient with at bedside abd swollen coughing; dyspnea improve wants to stop dialysis, feeling he is a burden to his family endorses depression, no SI Review of Systems Review of Systems: Yes all other systems are reviewed and are negative Physical Exam Vital Signs: Vital Signs: Last Vital Signs Temp 96.3 F L 12/19/22 07:08 Pulse 92 12/19/22 07:08 Resp 18 12/19/22 07:08 BP 122/77 12/19/22 07:08 Pulse Ox 96 12/19/22 07:08 O2 Del Method Room Air 12/19/22 07:08 BMI result Body Mass Index 29.8 Gen: in no acute distress HEENT: sclera anicteric, moist mucus membranes Neck: supple Lungs: diminished at L base Heart: regular rate and rhythm, no murmurs Abd: distended but non-tender, fluid wave present Ext: no edema Skin: warm/well-perfused, petechiae/purpura of toes bilaterally Neuro: alert and oriented x3, no focal findings Psych: appropriate affect Objective Data Active Medications Acetaminophen (Acetaminophen 325 Mg Tablet) 650 mg PO Q6H PRN PRN Reason: Pain, Mild (Pain Scale 1-3) Last Admin: 12/17/22 15:56 Dose: 650 mg Documented By: KM Acetaminophen (Acetaminophen Supp 650 Mg Supp.Rect) 650 mg MT Q6H PRN PRN Reason: Pain, Mild (Pain Scale 1-3) Allopurinol (Allopurinol 100 Mg Tablet) 100 mg PO SUTUTH@0900 [facility] Last Admin: 12/18/22 08:26 Dose: 100 mg Documented By: KM Apixaban (Apixaban 2.5 Mg Tablet) 2.5 mg PO BID [facility] Last Admin: 12/19/22 08:01 Dose: Not Given Documented By: FRANCESCA Non-Admin Reason: hold for possible procedure Calcium Acetate (Calcium Acetate 667 Mg Capsule) 667 mg PO DAILY [facility] Last Admin: 12/19/22 08:08 Dose: 667 mg Documented By: FRANCESCA Comments: barcode will not scan Ferrous Sulfate (Ferrous Sulfate 324 Mg Tablet.) 324 mg PO DAILY [facility] Last Admin: 12/19/22 08:07 Dose: 324 mg Documented By: FRANCESCA Dextrose (D10) 250 mls @ 750 mls/hr IV Q15M PRN PRN Reason: per Hypoglycemia Standing Ord. Last Infusion: 12/16/22 21:19 Dose: 0 mls/hr Documented By: JERRY Ampicillin Sodium/Sulbactam (Sodium 3 gm/ Sodium Chloride) 100 mls @ 200 mls/hr IV Q24H [facility] Last Infusion: 12/18/22 22:30 Dose: 0 mls/hr Documented By: GÓMEZ Lactulose (Lactulose 20 Gm/30 Ml Solution) 10 gm PO BID [facility] Last Admin: 12/19/22 08:11 Dose: Not Given Documented By: FRANCESCA Non-Admin Reason: Patient Refused Melatonin (Melatonin 3 Mg Tablet) 6 mg PO BEDTIME PRN PRN Reason: Insomnia Midodrine (Midodrine Hcl 5 Mg Tablet) 15 mg PO TID [facility] Last Admin: 12/19/22 08:07 Dose: 15 mg Documented By: FRANCESCA Multivitamins/Vitamin C (Multivitamin Tablet) 1 tab PO DAILY [facility] Last Admin: 12/19/22 08:07 Dose: 1 tab Documented By: FRANCESCA Omeprazole (Omeprazole 20 Mg Capsule.Dr) 20 mg PO DAILY@0630 [facility] Last Admin: 12/19/22 06:52 Dose: 20 mg Documented By: GÓMEZ Ondansetron HCl (Ondansetron Hcl 4 Mg/2 Ml Vial) 4 mg IVPUSH Q8H PRN PRN Reason: Nausea and Vomiting Oxycodone HCl (Oxycodone Hcl Immed Release 5 Mg Tablet) 5 mg PO Q4H PRN PRN Reason: Pain, Moderate(Pain Scale 4-6) Pharmacy Consult (Consult Rx Perform Med Rec) 1 each MISCELLANE ONCE PRN PRN Reason: Consult order Rifaximin (Rifaximin 550 Mg Tablet) 550 mg PO BID [facility] Last Admin: 12/19/22 08:07 Dose: 550 mg Documented By: FRANCESCA Sevelamer Carbonate (Sevelamer Carbonate Tablet 800 Mg Tablet) 800 mg PO BID [facility] Last Admin: 12/19/22 08:08 Dose: 800 mg Documented By: FRANCESCA Sodium Chloride (0.9 % Sodium Chloride Flush 3 Ml Syringe) 3 ml IVFLUSH QSHIFT [facility] Last Admin: 12/19/22 08:07 Dose: 3 ml Documented By: FRANCESCA Labs 12/19/22 09:03 12/19/22 09:03 Labs: Laboratory Results - last 24 hr 12/18/22 12/19/22 12/19/22 16:06 07:09 09:03 MCV 91.3 MCH 31.8 MCHC 34.9 RDW 18.1 H Plt Count 72 L D MPV Not Reportable Absolute Nucleated RBC 0.000 Nucleated RBC % (auto) 0.0 Anion Gap Estim Creat Clear Calc Estimated GFR POC Glucose 173 H 127 H Random Glucose Calcium Procalcitonin 12/19/22 09:03 MCV MCH MCHC RDW Plt Count MPV Absolute Nucleated RBC Nucleated RBC % (auto) Anion Gap 21 H Estim Creat Clear Calc 7.7 Estimated GFR 7 POC Glucose Random Glucose 139 H Calcium 9.0 Procalcitonin 2.97 Microbiology Microbiology Results: Microbiology 12/16/22 19:53 Blood Culture - Preliminary Blood - Venous No growth after 48 hours. 12/16/22 19:53 Blood Culture - Preliminary Blood - Venous No growth after 48 hours. 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, idiopathic hypotension on midodrine presented with cough + chills, hypotensive at HD admitted for sepsis due to PNA # sepsis due to PNA - renally-dosed amp-sul d#4, trend PCT, BCx negative # decompensated cirrhosis with ascites - paracentesis today - continue lactulose + rifaximin # paroxysmal AF with RVR - converted to NSR in ED after metoprolol IV - resume metoprolol succinate qhs - continue apixaban for anticoagulation # chronic idiopathic hypotension - continue midodrine # ESRD on HD - after discussion with Nephrology, pt willing to undergo HD but a shorter session - continue Ca acetate, sevelamer # thrombocytopenia - due to cirrhosis,monitor periodically # DM2 - refusing POC BGs, OK to d/c # depression vs adjustment disorder - psychiatry consultation # VTE ppx: apixaban # dispo: anticipate home eventually In my clinical judgment, the patient requires continued inpatient hospitalization for the following reasons: IV ABX Time Spent With Patient Time: Total time managing care of this patient today __50__ minutes. Quality Stroke Does the patient have a stroke diagnosis?: No VTE Prior VTE?: No VTE Risk Level:: Medical - moderate - high VTE Device Contraindication: Treatment Not Indicated VTE Drug Contraindication: N/A - Med Ordered
--- NOTE | 2022-12-19 13:16 | MHC.CM.PN ---
PT NOT YET MEDICALLY CLEARED DCP REMAINS HOME VIA FAMILY TRANSPORT
--- NOTE | 2022-12-19 13:39 | MHC.SL.SWA ---
Speech Pathologist Impression: WFL Risk of Aspiration Due to: History of Pneumonia Dysphasia Diet Status: No change Liquid Consistency and Strategies for Safe Swallow: Liquid Intake Recommendation: Thin Liquid Intake Strategies: Small Sips Solid Food Consistency: Dietary Recommendations: Regular Additional Modifications to Solid Foods: Recommend continue on unmodified diet REGULAR solids with THIN liquids, pills WHOLE in LIQUID. Unremarkable exam. Notified team of recommendations via [place] (MD, RN, RD). No changes made to diet order. Oral Medication Intake: Whole with Liquid Please contact the pharmacy regarding appropriate crushable or liquid drug formulations that are available whenever modified delivery is recommended. Compensatory Strategies and Precautions to be Taken for Safe Swallow: Sitting Upright (90 deg) Small Bites and Sips Rate of Ingestion Change Supervision While Eating and Drinking for Safe Swallow: Intermittent Supervision Recommendation for Speech: NA:Typical Evaluation Comment: SHAREPOINT SPECIALIST to f/u 1x to ensure tolerance. Child Development Assistant Clinican/Clinical Fellow: No Supervisory Statement: I have reviewed and agree with the student/clinical fellow's documentation: N/A Speech Language Pathologist: Gina Valdivia M.A., CCC-SHAREPOINT SPECIALIST
[2022-12-19] MEDS: Lidocaine HCl 1 % MPF 5 ML VIAL SUBCUT (14:09)
[2022-12-19 14:35] LABS: MN% 71.4 %; PMN% 28.6 %; RBC Peritoneal Fluid 0.002 X10*6/uL
[2022-12-19 15:29] LABS: BF Shift QC OK YES
--- NOTE | 2022-12-19 17:05 | P.CNPS_ITS ---
History of Present Illness Date of Service: 12/19/2022 <Nancy Metz NP - Last Filed: 12/21/22 16:27> Chief Complaint: Dyspnea <Nancy Metz NP - Last Filed: 12/21/22 16:27> Reason for Consult: Requesting to stop dialysis, question depression. <Nancy Metz NP - Last Filed: 12/21/22 16:27> Requesting physician: Trudy Garcia <Nancy Metz NP - Last Filed: 12/21/22 16:27> Discussed with referring provider: Yes <Nancy Metz NP - Last Filed: 12/21/22 16:27> Sources of Information: patient interviewed and chart reviewed <Nancy Metz NP - Last Filed: 12/21/22 16:27> Additional Sources of Information: spoke with daughter <Dereje Sagastume MD - Last Filed: 12/21/22 16:35> HPI Narrative: Patient is a 87-year-old male with pertinent history of ESRD on hemodialysis, paroxysmal atrial fibrillation on anticoagulation, unspecified liver cirrhosis, QT prolongation on beta-rosendo, 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 Consult was called d/t patient request to stop dialysis and question of depression. Patient interviewed with and 2 daughters present in room. Patient presents alert and oriented, calm and cooperative. Patient reported feeling depressed d/t feeling like a burden to his family. Patient stated, ?this isn?t life?. Patient tearful when discussing his relationship with his family; stating how much he loves them and how they care for him. Patient reports he does not have any pain during dialysis, however states he becomes very weak and cannot walk afterwards which requires his family to help him get around the home. He is hoping he can either stop dialysis or cut down the amount of times he attends treatment during the week. Patient is able to vocalize his understanding of the consequences of stopping his dialysis treatment. He also reports he has not been able to sleep well for years and is open to starting medication to assist in his sleep. <Nancy Metz NP - Last Filed: 12/21/22 16:27> Past Psychiatric History: Patient denies. <Nancy Metz NP - Last Filed: 12/21/22 16:27> Review of Systems Review of Systems Denies chest pain Denies shortness of breath Denies nausea vomiting diarrhea Denies fever chills <Nancy Metz ANIMAL HANDLER - Last Filed: 12/21/22 16:27> Yes all other systems are reviewed and are negative <Nancy Metz ANIMAL HANDLER - Last Filed: 12/21/22 16:27> Constitutional: Reports chills <Nancy Metz ANIMAL HANDLER - Last Filed: 12/21/22 16:27> Cardiovascular: Reports palpitations <Nancy Metz ANIMAL HANDLER - Last Filed: 12/21/22 16:27> Respiratory: Reports cough <Nancy Metz NP - Last Filed: 12/21/22 16:27> Gastrointestinal: Reports bloating <Nancy Metz ANIMAL HANDLER - Last Filed: 12/21/22 16:27> Genitourinary: Reports no additional male genitourinary complaints <Nancy Metz NP - Last Filed: 12/21/22 16:27> Endocrine: Reports palpitations <Nancy Metz ANIMAL HANDLER - Last Filed: 12/21/22 16:27> [facility] Medical History: Medical History Cirrhosis ESRD (end stage renal disease) on dialysis Idiopathic hypotension NICM (nonischemic cardiomyopathy) PAF (paroxysmal atrial fibrillation) <Nancy Metz NP - Last Filed: 12/21/22 16:27> Surgical History: Surgical History H/O colonoscopy History of appendectomy <Nancy Metz NP - Last Filed: 12/21/22 16:27> Family History: and 2 daughters present. Strong family support system. <Nancy Metz NP - Last Filed: 12/21/22 16:27> Social History: unknown <Nancy Metz ANIMAL HANDLER - Last Filed: 12/21/22 16:27> Substance History: unknown <Nancy Metz NP - Last Filed: 12/21/22 16:27> Trauma History: unknown <Nancy Metz NP - Last Filed: 12/21/22 16:27> Diagnostics Vital Signs (24Hr): Vital Signs - 24 hr 12/18/22 20:00 12/19/22 03:15 12/19/22 07:08 Temperature 97.5 F 97.3 F 96.3 F L Pulse Rate 60 74 92 Respiratory Rate 16 16 18 Blood Pressure 106/55 L 124/66 122/77 Pulse Oximetry 98 96 96 Oxygen Delivery Method Room Air Room Air Room Air 12/19/22 14:07 12/19/22 15:00 12/19/22 15:30 Temperature 97 F 97.9 F 97.2 F Pulse Rate 90 90 90 Respiratory Rate 18 20 18 Blood Pressure 128/64 95/52 L 90/52 L Pulse Oximetry 96 93 93 Oxygen Delivery Method Room Air Room Air Room Air 12/19/22 16:00 12/19/22 17:00 Temperature 97.9 F Pulse Rate 91 92 Respiratory Rate 20 20 Blood Pressure 114/55 L 121/51 L Pulse Oximetry 95 95 Oxygen Delivery Method Room Air Room Air BMI result Body Mass Index 29.8 <Nancy Metz NP - Last Filed: 12/21/22 16:27> Labs Results: 12/19/22 09:03 12/19/22 09:03 <Nancy Metz NP - Last Filed: 12/21/22 16:27> Labs: Laboratory Results - last 48 hr 12/17/22 12/17/22 12/18/22 17:44 22:35 05:29 WBC RBC Hgb Hct MCV MCH MCHC RDW Plt Count MPV Absolute Nucleated RBC Nucleated RBC % (auto) Sodium Potassium Chloride Carbon Dioxide Anion Gap BUN Creatinine Estim Creat Clear Calc Estimated GFR POC Glucose 74 112 85 Random Glucose Calcium Procalcitonin Peritoneal WBC Peritoneal RBC 12/18/22 12/18/22 12/19/22 11:11 16:06 07:09 WBC RBC Hgb Hct MCV MCH MCHC RDW Plt Count MPV Absolute Nucleated RBC Nucleated RBC % (auto) Sodium Potassium Chloride Carbon Dioxide Anion Gap BUN Creatinine Estim Creat Clear Calc Estimated GFR POC Glucose 173 H 173 H 127 H Random Glucose Calcium Procalcitonin Peritoneal WBC Peritoneal RBC 12/19/22 12/19/22 12/19/22 09:03 09:03 13:30 WBC 12.3 H RBC 3.58 L Hgb 11.4 L Hct 32.7 L MCV 91.3 MCH 31.8 MCHC 34.9 RDW 18.1 H Plt Count 72 L D MPV Not Reportable Absolute Nucleated RBC 0.000 Nucleated RBC % (auto) 0.0 Sodium 132 L Potassium 4.9 Chloride 98 Carbon Dioxide 18 L Anion Gap 21 H BUN 55 H Creatinine 7.28 H* Estim Creat Clear Calc 7.7 Estimated GFR 7 POC Glucose Random Glucose 139 H Calcium 9.0 Procalcitonin 2.97 Peritoneal WBC 0.330 Peritoneal RBC 0.002 <Nancy Metz NP - Last Filed: 12/21/22 16:27> Imaging Radiology Impressions: ITS Impressions Chest X-Ray 12/16/22 20:00 IMPRESSION: Small left pleural effusion. Increased retrocardiac opacity which could represent atelectasis or pneumonia. Paracentesis Ultrasound 12/19/22 14:00 IMPRESSION: Ultrasound-guided paracentesis. <Nancy Metz NP - Last Filed: 12/21/22 16:27> Mental Status Exam Mental Status Exam Narrative: Pt is alert and oriented; behavior is cooperative, friendly and calm; patient is not in distress; dressed in hospital garb with unkempt hair but adequate hygiene; mood is described as okay ; eye contact appropriate; Speech is normal rate, volume and prosody and not pressured; no psychomotor agitation/retardation present; thought process is organized; Thought content is on tx; otherwise pertinent to relevant topics and without any delusional content, paranoid ideations or grandiosity; denies any SI/HI. There is no evidence of perceptual disturbance. Patients insight and judgment are fair. <Nancy Metz NP - Last Filed: 12/21/22 16:27> Medications Medications Current Medications Acetaminophen (Acetaminophen 325 Mg Tablet) 650 mg PO Q6H PRN PRN Reason: Pain, Mild (Pain Scale 1-3) Last Admin: 12/17/22 15:56 Dose: 650 mg Acetaminophen (Acetaminophen Supp 650 Mg Supp.Rect) 650 mg VT Q6H PRN PRN Reason: Pain, Mild (Pain Scale 1-3) Allopurinol (Allopurinol 100 Mg Tablet) 100 mg PO SUTUTH@0900 GEMMA Last Admin: 12/18/22 08:26 Dose: 100 mg Apixaban (Apixaban 2.5 Mg Tablet) 2.5 mg PO BID [facility] Last Admin: 12/19/22 08:01 Dose: Not Given Calcium Acetate (Calcium Acetate 667 Mg Capsule) 667 mg PO DAILY [facility] Last Admin: 12/19/22 08:08 Dose: 667 mg Ferrous Sulfate (Ferrous Sulfate 324 Mg Tablet.) 324 mg PO DAILY [facility] Last Admin: 12/19/22 08:07 Dose: 324 mg Dextrose (D10) 250 mls @ 750 mls/hr IV Q15M PRN PRN Reason: per Hypoglycemia Standing Ord. Last Infusion: 12/16/22 21:19 Dose: Infused Ampicillin Sodium/Sulbactam (Sodium 3 gm/ Sodium Chloride) 100 mls @ 200 mls/hr IV Q24H [facility] Last Infusion: 12/18/22 22:30 Dose: Infused Lactulose (Lactulose 20 Gm/30 Ml Solution) 10 gm PO BID [facility] Last Admin: 12/19/22 08:11 Dose: Not Given Melatonin (Melatonin 3 Mg Tablet) 6 mg PO BEDTIME PRN PRN Reason: Insomnia Metoprolol Succinate (Metoprolol Succinate Er 12.5 Mg Halftab.Er.24h) 12.5 mg PO BEDTIME [facility]; Protocol Midodrine (Midodrine Hcl 5 Mg Tablet) 15 mg PO TID [facility] Last Admin: 12/19/22 15:44 Dose: 15 mg Multivitamins/Vitamin C (Multivitamin Tablet) 1 tab PO DAILY [facility] Last Admin: 12/19/22 08:07 Dose: 1 tab Omeprazole (Omeprazole 20 Mg Capsule.) 20 mg PO DAILY@0630 [facility] Last Admin: 12/19/22 06:52 Dose: 20 mg Ondansetron HCl (Ondansetron Hcl 4 Mg/2 Ml Vial) 4 mg IVPUSH Q8H PRN PRN Reason: Nausea and Vomiting Oxycodone HCl (Oxycodone Hcl Immed Release 5 Mg Tablet) 5 mg PO Q4H PRN PRN Reason: Pain, Moderate(Pain Scale 4-6) Pharmacy Consult (Consult Rx Perform Med Rec) 1 each MISCELLANE ONCE PRN PRN Reason: Consult order Rifaximin (Rifaximin 550 Mg Tablet) 550 mg PO BID [facility] Last Admin: 12/19/22 08:07 Dose: 550 mg Sevelamer Carbonate (Sevelamer Carbonate Tablet 800 Mg Tablet) 800 mg PO BID [facility] Last Admin: 12/19/22 08:08 Dose: 800 mg Sodium Chloride (0.9 % Sodium Chloride Flush 3 Ml Syringe) 3 ml IVFLUSH QSHIFT [facility] Last Admin: 12/19/22 15:48 Dose: 3 ml Zolpidem Tartrate (Zolpidem Tartrate 5 Mg Tablet) 5 mg PO BEDTIME [facility] <Nancy Metz ANIMAL HANDLER - Last Filed: 12/21/22 16:27> Allergies Allergies Allergy/AdvReac Type Severity Reaction Status Date / Time No Known Allergies Allergy Verified 11/10/22 10:58 [No Known Allergies*] <Nancy Metz ANIMAL HANDLER - Last Filed: 12/21/22 16:27> Assessment & Plan Assessment & Plan (1) Sepsis: Status: Acute <Nancy Metz, ANIMAL HANDLER - Last Filed: 12/21/22 16:27> Code(s): A41.9 - Sepsis, unspecified organism <Nancy Metz ANIMAL HANDLER - Last Filed: 12/21/22 16:27> (2) Atrial fibrillation with RVR: Status: Acute <Nancy Metz, ANIMAL HANDLER - Last Filed: 12/21/22 16:27> Code(s): I48.91 - Unspecified atrial fibrillation <Nancy Metz, ANIMAL HANDLER - Last Filed: 12/21/22 16:27> (3) PAF (paroxysmal atrial fibrillation): Status: Acute <Nancy Metz, ANIMAL HANDLER - Last Filed: 12/21/22 16:27> Code(s): I48.0 - Paroxysmal atrial fibrillation <Nancy Metz, ANIMAL HANDLER - Last Filed: 12/21/22 16:27> (4) NICM (nonischemic cardiomyopathy): Status: Acute <Nancy Metz, ANIMAL HANDLER - Last Filed: 12/21/22 16:27> Code(s): I42.8 - Other cardiomyopathies <Nancy Metz, ANIMAL HANDLER - Last Filed: 12/21/22 16:27> (5) Idiopathic hypotension: Status: Acute <Nancy Metz, ANIMAL HANDLER - Last Filed: 12/21/22 16:27> Code(s): I95.0 - Idiopathic hypotension <Nancy Khabir, ANIMAL HANDLER - Last Filed: 12/21/22 16:27> (6) ESRD (end stage renal disease) on dialysis: Status: Acute <Nancy Khabir, ANIMAL HANDLER - Last Filed: 12/21/22 16:27> Code(s): N18.6 - End stage renal disease; Z99.2 - Dependence on renal di alysis <Nancy Khabir, ANIMAL HANDLER - Last Filed: 12/21/22 16:27> (7) QT prolongation: Status: Acute <Nancy Khabir, ANIMAL HANDLER - Last Filed: 12/21/22 16:27> Code(s): R94.31 - Abnormal electrocardiogram [ECG] [EKG] <Nancy Khabir, ANIMAL HANDLER - Last Filed: 12/21/22 16:27> (8) Cirrhosis: Status: Acute <Nancy Khabir, ANIMAL HANDLER - Last Filed: 12/21/22 16:27> Code(s): K74.60 - Unspecified cirrhosis of liver <Nancy Khabir, ANIMAL HANDLER - Last Filed: 12/21/22 16:27> (9) Pleural effusion, left: Status: Acute <Nancy Khabir, ANIMAL HANDLER - Last Filed: 12/21/22 16:27> Code(s): J90 - Pleural effusion, not elsewhere classified <Nancy Khabir, ANIMAL HANDLER - Last Filed: 12/21/22 16:27> (10) Pneumonia: Status: Acute <Nancy Khabir, ANIMAL HANDLER - Last Filed: 12/21/22 16:27> Code(s): J18.9 - Pneumonia, unspecified organism <Nancy Khabir, ANIMAL HANDLER - Last Filed: 12/21/22 16:27> (11) Hypotension: Status: Acute <Nancy Khabir, ANIMAL HANDLER - Last Filed: 12/21/22 16:27> Code(s): I95.9 - Hypotension, unspecified <Nancy Khabir, ANIMAL HANDLER - Last Filed: 12/21/22 16:27> (12) Hyperkalemia: Status: Acute <Nancy Khabir, ANIMAL HANDLER - Last Filed: 12/21/22 16:27> Code(s): E87.5 - Hyperkalemia <Nancy Khabir, ANIMAL HANDLER - Last Filed: 12/21/22 16:27> Assessment and Plan: Patient is a 87-year-old male with pertinent history of ESRD on hemodialysis, paroxysmal atrial fibrillation on anticoagulation, unspecified liver cirrhosis, QT prolongation on beta-rosendo, 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 Consult was called d/t patient request to stop dialysis and question of depression. Patient denies any psychiatric history. He states his depression started more recently d/t feeling like a burden to his family. He is able to vocalize the consequences of stopping dialysis. Patient stated, this isn't life . He also reports he has not been able to sleep well for years and is open to starting medication to assist in his sleep. Recommendation: Would consider starting patient on Ambien or Gabapentin at bedtime for sleep which seems to be a ulrich factor in improving his quality of life. Referral to have physical therapy help with his mobility at home. Referral to therapist to discuss depression. 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 Consult was called d/t patient request to stop dialysis and question of depression. Patient denies any psychiatric history. He states his depression started more recently d/t feeling like a burden to his family. He is able to vocalize the consequences of stopping dialysis. Patient stated, this isn't life . He also reports he has not been able to sleep well for years and is open to starting medication to assist in his sleep. Recommendation: Would consider starting patient on Ambien or Gabapentin at bedtime for sleep which seems to be a ulrich factor in improving his quality of life. Referral to have physical therapy help with his mobility at home. Referral to therapist to discuss issues related to quality of life/dialysis / may benefit from home pt to help wiyh qol consider mirtazapine low dose but would need to follow ekg <Dereje Sagastume MD - Last Filed: 12/21/22 16:35> Total time managing care of this patient today ____ minutes. <Nancy Metz NP - Last Filed: 12/21/22 16:27> Total time managing care of this patient today _45___ minutes. <Dereje Sagastume MD - Last Filed: 12/21/22 16:35> Patient educated on: diagnosis, medication risk/benefits, therapeutic strategies and medical condition <Nancy Metz NP - Last Filed: 12/21/22 16:27> Informed Consent: understands <Nancy Metz NP - Last Filed: 12/21/22 16:27>
[2022-12-19] MEDS: Metoprolol Succinate ER 12.5 MG HALFTAB.ER.24H PO (20:06)
[2022-12-19] MEDS: Lactulose 20 GM/30 ML SOLUTION 10 GM PO (20:07)
[2022-12-19] MEDS: Apixaban 2.5 MG TABLET PO (20:07)
[2022-12-19] MEDS: Zolpidem Tartrate 5 MG TABLET PO (20:07)
[2022-12-19 22:32] LABS: Total Protein Peritoneal Fluid 2.2 GM/DL
[2022-12-20] MEDS: Ampicillin Sodium/Sulbactam Na 3 GM in 0.9 % Sodium Chloride 100 ML IV (00:18)
[2022-12-20] MEDS: ondansetron HCL 4 MG/2 ML VIAL IVPUSH (01:39)
[2022-12-20 03:20] LABS: Glucose, Whole Blood 93 mg/dL (60-115)
[2022-12-20 03:56] VITALS: BP 92/48; PULSE 102; RESP 17; TEMP 36.6; O2SAT 94
[2022-12-20] MEDS: Midodrine HCl 5 MG TABLET PO (04:50)
[2022-12-20] MEDS: Omeprazole 20 MG CAPSULE.DR PO (04:51)
--- NOTE | 2022-12-20 06:02 | PM.EVENT ---
Event Note Date of Service: 12/21/22 Event Note: Noted to be hypotensive, lactic acid elevated, this time will give 1 L of fluid. given patient's cirrhosis as well as kidney failure patient will not tolerate full 30 cc/kg of fluid, will give 1 L of fluid and recheck BP. 5 mg of midodrine have also been administered Time Spent With Patient Time: Total time managing care of this patient today ____ minutes.
[2022-12-20] MEDS: Lactated Ringers 1,000 ML 999 ML IV (06:25)
[2022-12-20 06:54] LABS: Reflex Lactate? Lactic Acid Added
[2022-12-20 07:10] VITALS: BP 98/49; PULSE 99; RESP 16; TEMP 36.9; O2SAT 92
[2022-12-20 07:23] LABS: Glucose, Whole Blood 77 mg/dL (60-115)
[2022-12-20] MEDS: Albumin Human 25 % 100 ML IV ×2 (07:50→09:15)
[2022-12-20] MEDS: rifAXIMin 550 MG TABLET PO (07:57)
[2022-12-20] MEDS: Ferrous Sulfate 324 MG TABLET.DR PO (07:57)
[2022-12-20] MEDS: Multivitamin TABLET 1 TAB PO (07:57)
[2022-12-20] MEDS: Midodrine HCl 5 MG TABLET 15 MG PO (07:57)
[2022-12-20] MEDS: Sevelamer Carbonate Tablet 800 MG TABLET PO (07:57)
[2022-12-20] MEDS: 0.9 % Sodium Chloride Flush 3 ML SYRINGE IVFLUSH (07:58)
[2022-12-20] MEDS: Apixaban 2.5 MG TABLET PO (07:58)
[2022-12-20] MEDS: Calcium Acetate 667 MG CAPSULE PO (07:58)
[2022-12-20] MEDS: allopurinoL 100 MG TABLET PO (08:02)
[2022-12-20 08:15] LABS: ~Lactic Acid-LAB USE ONLY 3.9 mmol/L (0.5-2.0)
[2022-12-20 08:30] LABS: Glucose, Whole Blood 109 mg/dL (60-115)
[2022-12-20 09:37] LABS: Reflex Lactate? 2 Y
--- NOTE | 2022-12-20 10:11 | PM.PNNEP ---
Subjective Subjective Date of Service: 12/20/22 Interval history: Events noted. Family at bedside. Patient is not willing to continue dialysis. He is very clear with this decision. He wants to go home and be with his family during his last days Physical Exam Vital Signs: Vital Signs: Last Vital Signs Temp 98.4 F 12/20/22 07:10 Pulse 99 12/20/22 07:10 Resp 16 12/20/22 07:10 BP 98/49 L 12/20/22 07:10 Pulse Ox 92 12/20/22 07:10 O2 Del Method Room Air 12/20/22 07:10 BMI result Body Mass Index 29.8 Const: Other: Awake alert no acute distress Resp: Other: Clear to auscultation bilaterally no rales rhonchi or wheezes Cardio: Other: No S4; positive S1-S2; no S3 murmurs rubs or gallops GI: Other: Soft nontender nondistended normoactive bowel sounds Extrem: Other: No edema bilaterally Objective Data Labs 12/19/22 09:03 12/19/22 09:03 Labs: Laboratory Results - last 24 hr 12/19/22 12/19/22 12/19/22 09:03 13:30 13:30 POC Glucose Lactic Acid Lactic Acid F/U @ 2Hr Procalcitonin 2.97 Peritoneal WBC 0.330 Peritoneal RBC 0.002 Peritoneal Tot Protein 2.2 Peritoneal Albumin 1.0 12/19/22 12/20/22 12/20/22 13:30 03:13 04:52 POC Glucose 93 Lactic Acid 4.0 H* Lactic Acid F/U @ 2Hr Procalcitonin Peritoneal WBC 0.238 Peritoneal RBC 0.002 Peritoneal Tot Protein Peritoneal Albumin 12/20/22 12/20/22 12/20/22 07:12 07:30 08:27 POC Glucose 77 109 Lactic Acid Lactic Acid F/U @ 2Hr 3.9 H* Procalcitonin Peritoneal WBC Peritoneal RBC Peritoneal Tot Protein Peritoneal Albumin Microbiology Microbiology Results: Microbiology 12/16/22 19:53 Blood - Venous Blood Culture - Preliminary No growth after 48 hours. 12/16/22 19:53 Blood - Venous Blood Culture - Preliminary No growth after 48 hours. Procedures Date of Service Date of Service: 12/20/22 Assessment & Plan Assessment and plan (1) ESRD (end stage renal disease) on dialysis: Status: Acute Plan ESRD on hemodialysis Shahriar Wednesday Gabe.? As per patient's wishes we will stop hemodialysis. Mild hyperkalemia Low-potassium diet Can use Lokelma as needed. Chronic hypotension Midodrine 10 mg during dialysis.? Anemia Cirrhosis/ascites abdominal paracentesis if he agrees Supportive care Time Spent With Patient Time: Total time managing care of this patient today ____ minutes. Progress Note: Quality Stroke Does the patient have a stroke diagnosis?: No
[2022-12-20 10:38] LABS: Lymphocyte Peritoneal Fl 26 %; Monocytes Peritoneal Fl 11 %; Neutrophils Peritoneal Fluid 29 %; Other Peritioneal Fl 34 %
--- NOTE | 2022-12-20 11:58 | HO.PM.IMPN ---
Subjective Subjective Date of Service: 12/20/22 Interval History: BP low overnight. Lactate high. Pt got IV fluids 1L. This AM got 50g albumin. States he's tired of being sick and does not want to get HD anymore. Refusing blood draws as well. Wants to go home on hospice. Review of Systems Review of Systems: Yes all other systems are reviewed and are negative Physical Exam Vital Signs: Vital Signs: Last Vital Signs Temp 98.4 F 12/20/22 07:10 Pulse 99 12/20/22 07:10 Resp 16 12/20/22 07:10 BP 98/49 L 12/20/22 07:10 Pulse Ox 92 12/20/22 07:10 O2 Del Method Room Air 12/20/22 07:10 BMI result Body Mass Index 29.8 Gen: in no acute distress HEENT: sclera anicteric, moist mucus membranes Neck: supple Lungs: diminished at L base Heart: regular rate and rhythm, no murmurs Abd: distended but non-tender, fluid wave present Ext: no edema Skin: warm/well-perfused, petechiae/purpura of toes bilaterally Neuro: alert and oriented x3, no focal findings Psych: appropriate affect Objective Data Active Medications Acetaminophen (Acetaminophen 325 Mg Tablet) 650 mg PO Q6H PRN PRN Reason: Pain, Mild (Pain Scale 1-3) Last Admin: 12/17/22 15:56 Dose: 650 mg Documented By: KM Acetaminophen (Acetaminophen Supp 650 Mg Supp.Rect) 650 mg [place] Q6H PRN PRN Reason: Pain, Mild (Pain Scale 1-3) Allopurinol (Allopurinol 100 Mg Tablet) 100 mg PO SUTUTH@0900 [facility] Last Admin: 12/20/22 08:02 Dose: 100 mg Documented By: FRANCESCA Apixaban (Apixaban 2.5 Mg Tablet) 2.5 mg PO BID [facility] Last Admin: 12/20/22 07:58 Dose: 2.5 mg Documented By: FRANCESCA Calcium Acetate (Calcium Acetate 667 Mg Capsule) 667 mg PO DAILY [facility] Last Admin: 12/20/22 07:58 Dose: 667 mg Documented By: FRANCESCA Comments: barcode will not scan Ferrous Sulfate (Ferrous Sulfate 324 Mg Tablet.) 324 mg PO DAILY [facility] Last Admin: 12/20/22 07:57 Dose: 324 mg Documented By: FRANCESCA Dextrose (D10) 250 mls @ 750 mls/hr IV Q15M PRN PRN Reason: per Hypoglycemia Standing Ord. Last Infusion: 12/16/22 21:19 Dose: 0 mls/hr Documented By: JERRY Ampicillin Sodium/Sulbactam (Sodium 3 gm/ Sodium Chloride) 100 mls @ 200 mls/hr IV Q24H [facility] Last Infusion: 12/20/22 01:42 Dose: 0 mls/hr Documented By: GÓMEZ Lactulose (Lactulose 20 Gm/30 Ml Solution) 10 gm PO BID [facility] Last Admin: 12/20/22 08:54 Dose: Not Given Documented By: FRANCESCA Non-Admin Reason: patient refused Melatonin (Melatonin 3 Mg Tablet) 6 mg PO BEDTIME PRN PRN Reason: Insomnia Metoprolol Succinate (Metoprolol Succinate Er 12.5 Mg Halftab.Er.24h) 12.5 mg PO BEDTIME [facility]; Protocol Last Admin: 12/19/22 20:06 Dose: 12.5 mg Documented By: GÓMEZ Midodrine (Midodrine Hcl 5 Mg Tablet) 15 mg PO TID [facility] Last Admin: 12/20/22 07:57 Dose: 15 mg Documented By: FRANCESCA Multivitamins/Vitamin C (Multivitamin Tablet) 1 tab PO DAILY [facility] Last Admin: 12/20/22 07:57 Dose: 1 tab Documented By: FRANCESCA Omeprazole (Omeprazole 20 Mg Capsule.Dr) 20 mg PO DAILY@0630 [facility] Last Admin: 12/20/22 04:51 Dose: 20 mg Documented By: GÓMEZ Ondansetron HCl (Ondansetron Hcl 4 Mg/2 Ml Vial) 4 mg IVPUSH Q8H PRN PRN Reason: Nausea and Vomiting Last Admin: 12/20/22 01:39 Dose: 4 mg Documented By: GÓMEZ Oxycodone HCl (Oxycodone Hcl Immed Release 5 Mg Tablet) 5 mg PO Q4H PRN PRN Reason: Pain, Moderate(Pain Scale 4-6) Pharmacy Consult (Consult Rx Perform Med Rec) 1 each MISCELLANE ONCE PRN PRN Reason: Consult order Rifaximin (Rifaximin 550 Mg Tablet) 550 mg PO BID [facility] Last Admin: 12/20/22 07:57 Dose: 550 mg Documented By: FRANCESCA Sevelamer Carbonate (Sevelamer Carbonate Tablet 800 Mg Tablet) 800 mg PO BID [facility] Last Admin: 12/20/22 07:57 Dose: 800 mg Documented By: FRANCESCA Sodium Chloride (0.9 % Sodium Chloride Flush 3 Ml Syringe) 3 ml IVFLUSH QSHIFT [facility] Last Admin: 12/20/22 07:58 Dose: 3 ml Documented By: FRANCESCA Zolpidem Tartrate (Zolpidem Tartrate 5 Mg Tablet) 5 mg PO BEDTIME [facility] Last Admin: 12/19/22 20:07 Dose: 5 mg Documented By: GÓMEZ Labs 12/19/22 09:03 12/19/22 09:03 Labs: Laboratory Results - last 24 hr 12/19/22 12/19/22 12/19/22 13:30 13:30 13:30 POC Glucose Lactic Acid Lactic Acid F/U @ 2Hr Peritoneal WBC 0.330 Cancelled Peritoneal RBC 0.002 Cancelled Periton Neutrophils 29 Cancelled Periton Lymphocytes 26 Cancelled Peritoneal Monocytes 11 Cancelled Peritoneal Eosinophils Cancelled Peritoneal Basophils Cancelled Peritoneal Other Cells 34 Cancelled Peritoneal Tot Protein 2.2 Peritoneal Albumin 1.0 12/20/22 12/20/22 12/20/22 03:13 04:52 07:12 POC Glucose 93 77 Lactic Acid 4.0 H* Lactic Acid F/U @ 2Hr Peritoneal WBC Peritoneal RBC Periton Neutrophils Periton Lymphocytes Peritoneal Monocytes Peritoneal Eosinophils Peritoneal Basophils Peritoneal Other Cells Peritoneal Tot Protein Peritoneal Albumin 12/20/22 12/20/22 07:30 08:27 POC Glucose 109 Lactic Acid Lactic Acid F/U @ 2Hr 3.9 H* Peritoneal WBC Peritoneal RBC Periton Neutrophils Periton Lymphocytes Peritoneal Monocytes Peritoneal Eosinophils Peritoneal Basophils Peritoneal Other Cells Peritoneal Tot Protein Peritoneal Albumin Assessment and Plan (1) Sepsis: Status: Acute (2) Atrial fibrillation with RVR: Status: Acute (3) Pneumonia: Status: Acute (4) Cirrhosis: Status: Acute Plan d#5 87yo M with ESRD on HD, paroxysmal AF on apixaban, decompensated hepatic cirrhosis, QT prologation on b-rosendo, idiopathic hypotension on midodrine presented with cough + chills, hypotensive at HD admitted for sepsis due to PNA # sepsis due to PNA - renally-dosed amp-sul d#5, BCx negative # decompensated cirrhosis with ascites - paracentesis 12/19/22 with removal of 5.6L of ascites. 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 goals of care as below # thrombocytopenia - due to cirrhosis # DM2 - refusing POC BGs, OK to d/c # depression vs adjustment disorder - psychiatry consulted; zolpidem for sleep # goals of care - Family discussion with and children. Pt clear he no longer wants HD. He realizes this will lead to his ultimate demise within weeks and is at peace with this. He wishes to transition to hospice in the home setting. CM consultation. # VTE ppx: apixaban # dispo: anticipate home with hospice In my clinical judgment, the patient requires continued inpatient hospitalization for the following reasons: hospice care transition Time Spent With Patient Time: Total time managing care of this patient today ____40 minutes. Quality Stroke Does the patient have a stroke diagnosis?: No VTE Prior VTE?: No VTE Risk Level:: Medical - moderate - high VTE Device Contraindication: Treatment Not Indicated VTE Drug Contraindication: N/A - Med Ordered
--- NOTE | 2022-12-20 13:13 | W.MHC.ACPN ---
Advanced Care Planning Note Advanced Care Planning Note Discussed with: patient and family member(s) Time spent (in minutes): 30 Narrative: Pt with ESLD + ESRD with full decision making capacity electing to discontinue HD. Realizes this will lead to his ultimate demise. Wishes to pass away peacefully at home. Knows that will come from uremia/hyperK within weeks. and 2 daughters present at bedside. Will transition to hospice care at home. Problems Discussed (1) Sepsis: (2) Atrial fibrillation with RVR: (3) Pneumonia: (4) Cirrhosis:
--- NOTE | 2022-12-20 13:42 | P.DS_ITS ---
DS: Providers Provider Date of Service: 12/20/22 Date of admission: 12/16/22 22:12 Date of discharge: 12/20/22 Primary care physician: Llia Daniel MD Consults: 12/16/22 22:13 Consult to Nephrology Routine Consulting Provider: Akin Mcgarry Reason for consultation: ESRD on dialysis 12/19/22 10:39 Consult to Psychiatry Routine Consulting Provider: Psych Covering Reason for consultation: ESRD on HD, cirrhosis. Considering d/c ESRD but depressed DS: Diagnosis Discharge Diagnosis (1) Sepsis: Status: Acute (2) Atrial fibrillation with RVR: Status: Acute (3) Pneumonia: Status: Acute (4) Cirrhosis: Status: Acute (5) Hyperkalemia: Status: Acute (6) Hypotension: Status: Acute (7) ESRD (end stage renal disease) on dialysis: Status: Acute DS: Summary Hospital Course Hospital Course: from admission H+P by Arleth Osborne MD, 12/16/22: This is a 87-year-old male with pertinent history of ESRD on hemodialysis, paroxysmal atrial fibrillation on anticoagulation, unspecified liver cirrhosis, QT prolongation on beta-rosendo, 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? Patient is a poor historian and most of the history was taken by daughters at bedside.? Patient was found to be hypotensive even before his dialysis session today.? Dialysis was initiated and patient's blood pressure further dropped and he was sent to the ER for further evaluation.? Patient endorses chills, palpitations and productive cough.? The daughter states that patient has been coughing a lot with liquids over the last few days.? No fever, chest discomfort, abdominal pain, changes in bowel habits.? Does have abdominal distension ?in the emergency department, patient was found to be hypotensive and he was found to be in AFib with RVR.? Leukocytosis was present and imaging was concerning for pneumonia. Mr Candelaria is an 87yo M with ESRD on HD, paroxysmal AF on apixaban, decompensated hepatic cirrhosis, QT prologation on b-rosendo, who idiopathic hypotension on midodrine who presented with cough + chills and was hypotensive at HD. He was admitted for sepsis due to pneumonia. Hospital course by problem: # sepsis due to PNA - Treated with 5 days of renally-dosed ampicillin-sulbactam. Blood cultures were negative. # decompensated cirrhosis with ascites - He underwent paracentesis on 12/19/22 with removal of 5.6L of ascites. Cell count was not consistent with SBP. # paroxysmal AF with RVR - He was in AF/RVR in the ED and converted to NSR in ED after metoprolol IV. # chronic idiopathic hypotension - He received midodrine and albumin for episodic hypotension. # thrombocytopenia - Due to cirrhosis and sepsis; stable. # ESRD on HD - He underwent HD MWF but then on 12/19/22 refused dialysis. After further discussion with the molder punch and his family, he chose to forgo dialysis and shift the goals of his care to palliation. He wishes to return home and recognizes that renal failure will lead to his ultimate demise within weeks. Home hospice services were arranged. Time Spent with Patient Time attestation: Total time managing care of this patient today ___40_ minutes. Discharge coordination time: Greater than 30 minutes Quality: Safe Use of Opioids Does Pt have an Active Cancer Diagnosis on the Problem List?: No Quality: Stroke Does the patient have a stroke diagnosis?: No Physical Exam Vital Signs: Vital Signs: Last Vital Signs Temp 98.4 F 12/20/22 07:10 Pulse 99 12/20/22 07:10 Resp 16 12/20/22 07:10 BP 98/49 L 12/20/22 07:10 Pulse Ox 92 12/20/22 07:10 O2 Del Method Room Air 12/20/22 07:10 BMI result Body Mass Index 29.8 Gen: in no acute distress HEENT: sclera anicteric, moist mucus membranes Neck: supple Lungs: diminished at L base Heart: regular rate and rhythm, no murmurs Abd: slightly distended but non-tender, fluid wave present Ext: no edema Skin: warm/well-perfused, petechiae/purpura of toes bilaterally Neuro: alert and oriented x3, no focal findings Psych: appropriate affect DS: Data Data Completed and Pending Completed studies during hospitalization [Text1]: Laboratory Results WBC 12.3 X10*3/uL (4.8-10.8) H 12/19/22 09:03 RBC 3.58 X10*6/uL (4.60-5.80) L 12/19/22 09:03 Hgb 11.4 g/dl (14.0-18.0) L 12/19/22 09:03 Hct 32.7 % (42.0-52.0) L 12/19/22 09:03 MCV 91.3 fL (80.0-98.0) 12/19/22 09:03 MCH 31.8 pg (27.0-33.0) 12/19/22 09:03 MCHC 34.9 g/dl (31.0-36.0) 12/19/22 09:03 RDW 18.1 % (11.0-16.0) H 12/19/22 09:03 Plt Count 72 X10*3/uL (160-400) L D 12/19/22 09:03 MPV Not Reportable 12/19/22 09:03 Immature Gran % (Auto) 1.0 % (0.0-0.4) H 12/17/22 05:51 Neut % (Auto) 87.7 % (45-73) H 12/17/22 05:51 Lymph % (Auto) 3.7 % (20-40) L 12/17/22 05:51 Pender % (Auto) 7.0 % (2-11) 12/17/22 05:51 Eos % (Auto) 0.4 % (0-4) 12/17/22 05:51 Baso % (Auto) 0.2 % (0-2) 12/17/22 05:51 Lymph # (Auto) 0.5 X10*3/uL (1.2-4.9) L 12/17/22 05:51 Pender # (Auto) 0.9 X10*3/uL (0.1-1.2) 12/17/22 05:51 Eos # (Auto) 0.1 X10*3/uL (0.0-0.4) 12/17/22 05:51 Baso # (Auto) 0.0 X10*3/uL (0.0-0.2) 12/17/22 05:51 Abs Immat Gran (auto) 0.13 X10*3/uL (0.00-0.03) H 12/17/22 05:51 Absolute Neuts (auto) 11.9 x10*3/uL (2.0-8.3) H 12/17/22 05:51 Absolute Nucleated RBC 0.000 X10*3/uL (0.0-0.012) 12/19/22 09:03 Nucleated RBC % (auto) 0.0 /100WBC (0.0-0.2) 12/19/22 09:03 Smear Tech's Comments VERIFIED 12/17/22 05:51 PT 19.8 SEC (10.0-13.1) H 12/16/22 19:24 INR 1.7 (0.9-1.1) H 12/16/22 19:24 Whole Blood INR Cancelled 12/16/22 19:23 Sodium 132 mmol/L (135-145) L 12/19/22 09:03 Potassium 4.9 mmol/L (3.3-5.1) 12/19/22 09:03 Chloride 98 mmol/L (96-108) 12/19/22 09:03 Carbon Dioxide 18 mmol/L (22-29) L 12/19/22 09:03 Anion Gap 21 (12-20) H 12/19/22 09:03 BUN 55 mg/dL (9-16) H 12/19/22 09:03 Creatinine 7.28 mg/dL (0.5-1.4) H* 12/19/22 09:03 Estim Creat Clear Calc 7.7 12/19/22 09:03 Estimated GFR 7 12/19/22 09:03 POC Glucose 109 mg/dL (60-115) 12/20/22 08:27 Random Glucose 139 mg/dL (60-115) H 12/19/22 09:03 Lactic Acid 4.0 mmol/L (0.5-2.0) H* 12/20/22 04:52 Lactic Acid F/U @ 2Hr 3.9 mmol/L (0.5-2.0) H* 12/20/22 07:30 Lactic Acid F/U @ 4Hr 3.0 mmol/L (0.5-2.0) H* 12/17/22 10:13 Calcium 9.0 mg/dL (8.4-10.2) 12/19/22 09:03 Total Bilirubin 3.2 mg/dL (0.0-1.0) H 12/16/22 19:23 Direct Bilirubin 1.4 mg/dL (0.0-0.5) H 12/16/22 19:23 AST 71 U/L (5-37) H 12/16/22 19: ALT 28 U/L (0-40) 12/16/22 19:23 Alkaline Phosphatase 351 U/L (39-117) H 12/16/22 19:23 Troponin I High Sens 58.6 ng/L (<3.5-35.0) H D 12/16/22 19:23 Total Protein 5.8 g/dL (6.5-8.0) L 12/16/22 19: Albumin 2.3 g/dL (3.5-5.0) L 12/16/22: Procalcitonin 2.97 ng/mL 12/19/22 09:03 Peritoneal WBC 0.330 X10*3/uL 12/19/22 13:30 Peritoneal WBC Cancelled 12/19/22 13:30 Peritoneal RBC 0.002 X10*6/uL 12/19/22 13:30 Peritoneal RBC Cancelled 12/19/22 13:30 Periton Neutrophils 29 % 12/19/22 13:30 Periton Neutrophils Cancelled 12/19/22 13:30 Periton Lymphocytes 26 % 12/19/22 13:30 Periton Lymphocytes Cancelled 12/19/22 13:30 Peritoneal Monocytes 11 % 12/19/22 13:30 Peritoneal Monocytes Cancelled 12/19/22 13:30 Peritoneal Eosinophils Cancelled 12/19/22 13:30 Peritoneal Basophils Cancelled 12/19/22 13:30 Peritoneal Other Cells 34 % 12/19/22 13:30 Peritoneal Other Cells Cancelled 12/19/22 13:30 Peritoneal Tot Protein 2.2 GM/DL 12/19/22 13:30 Peritoneal Albumin 1.0 GM/DL 12/19/22 13:30 Impressions Paracentesis Ultrasound 12/19/22 14:00 IMPRESSION: Ultrasound-guided paracentesis. Pending studies at discharge: Pending at discharge 12/19/22 13:30 Cytology [PTH] Routine Discharge Plan Discharge Anticipated Discharge Date/Time: 12/20/22 13:38 Patient Disposition: Hospice - Home Discharge Diagnosis: sepsis due to pneumonia decompensated cirrhosis with ascites paroxysmal AF with RVR chronic hypotension ESRD on HD thrombocytopenia Referrals: [facility] [Other] - 1 Week Lila Daniel MD [Primary Care Provider] - 1 Week Discharge Medications: New morphine concentrate 100 mg/5 mL (20 mg/mL) solution 5 mg PO Q3H PRN (Reason: pain/comfort) 15 Days Qty: 30 0RF Rx Instructions: Partial Fill upon patient request. lorazepam 0.5 mg tablet 0.5 mg PO Q6H PRN (Reason: anxiety/restlessness) 4 Days Qty: 16 0RF Discontinued apixaban 2.5 mg tablet 2.5 mg PO BID 90 Days Qty: 180 3RF glipizide 5 mg tablet extended release 24hr 5 mg PO DAILY omeprazole 20 mg capsule,delayed release(DR/EC) 20 mg PO DAILY@0630 lactulose 10 gram/15 mL Solution 15 ml PO BID ferrous sulfate 324 mg (65 mg iron) Tablet,Delayed Release (Dr/Ec) 324 mg PO DAILY sevelamer carbonate 800 mg tablet 800 mg PO BID rifaximin 550 mg Tablet 550 mg PO BID Centrum Silver Men 300-600-300 mcg Tablet 1 tab PO DAILY calcium acetate 667 mg Tablet 667 mg PO DAILY Rx Instructions: with food midodrine 10 mg tablet 15 mg PO TID allopurinol 100 mg tablet 100 mg PO SUTUTH@0900 metoprolol succinate 25 mg tablet extended release 24 hr 12.5 mg PO BEDTIME Discharge Orders: Discharge Order (Routine); Ordered 12/20/22 Ordered By: Trudy Garcia Diet: Advance to usual diet Activity on Discharge: As tolerated Stand Alone Forms: Patient Portal Discharge page Care Plan Goals: comfort/palliation Health Concerns: sepsis due to pneumonia decompensated cirrhosis with ascites paroxysmal AF with RVR chronic hypotension ESRD on HD thrombocytopenia Plan of Treatment: hospice care morphine for pain or shortness of breath lorazepam for anxiety or agitation Assessment: See Discharge Summary. Patient Instructions: Hospice Care (GEN)
[2022-12-20 15:35] VITALS: BP 146/73; PULSE 63; RESP 20; TEMP 35.1; O2SAT 96
== END 2022-12-20 19:30 | disposition hospice, home (50) | DRG 871 ==
LOC: HO.ED 20:55 → HO.EDOVER 22:15 → HO.IMC 12-17 03:38 → HO.S3 12-17 11:52
PROVIDERS: Hospitalist; Internal Medicine; Radiology Diagnostic Radiology; Admitting Provider Student in an Organized Health Care Education/Training Program; Emergency Provider Student in an Organized Health Care Education/Training Program; PCP Internal Medicine; Visit Provider Family Medicine
PROC: 0W9G3ZZ Drainage of Peritoneal Cavity, Percutaneous Approach (ICD-10-PCS; principal; 2022-12-19 13:30)
DX: A41.9 Sepsis, unspecified organism (principal); J69.0 Pneumonitis due to inhalation of food and vomit; N18.6 End stage renal disease; E87.21 Acute metabolic acidosis; R18.8 Other ascites; E87.5 Hyperkalemia; E11.22 Type 2 diabetes mellitus with diabetic chronic kidney disease; F32.A Depression, unspecified; I48.0 Paroxysmal atrial fibrillation; D63.1 Anemia in chronic kidney disease; R94.31 Abnormal electrocardiogram [ECG] [EKG]; Z99.2 Dependence on renal dialysis; I95.0 Idiopathic hypotension; D69.59 Other secondary thrombocytopenia; K74.60 Unspecified cirrhosis of liver; Z79.01 Long term (current) use of anticoagulants
CPT/HCPCS: 36415; 49083; 71045; 80048; 80076; 82042; 82947; 83605; 84145; 84157; 84484; 85025; 85027; 85610; 87040; 87070; 87073; 87205; 88112; 88305; 89051; 90999; 92610; 93005; 99285; J0295; J0613; J0696; J2405; J3475; P9047